=== PATIENT | male | born 1960 ===

== ENCOUNTER → 2021-05-23 08:18 | Outpatient (BNVA) | payer MEDICARE, MEDICAID, SELFPAY | PROVIDERS: Visit Provider Orthopaedic Surgery | DX: M17.12 Unilateral primary osteoarthritis, left knee (principal); E66.01 Morbid (severe) obesity due to excess calories; E11.9 Type 2 diabetes mellitus without complications; Z96.651 Presence of right artificial knee joint | CPT/HCPCS: 20610; 99202; J1100 ==

== ENCOUNTER 2021-07-22 09:00 | Outpatient (RCR) | payer MEDICARE, MEDICAID, SELFPAY ==
--- NOTE | 2021-06-22 11:50 | MHC.PT.EP ---
[facility] [place] Office [place] Office [place] Office [address] Danny Soto [address] [phone] F: [phone] F: [phone] F: [phone] F: [phone] Physical Therapy Plan of Care Date of Evaluation: Date of Surgery: Diagnosis: R knee OA Assessment: pt is a 61/yo male referred to pt for eval/treat of R knee pain (unilateral OA), and obesity. S/S are consistent w/ R unilateral knee dysfunction and increased abdominal girth resulting in decreased tolerance for WB activities like standing and ambulation for duration, negotiating stairs, picking object off of the floor, LE dressing, household activities secondary to decreased ROM of B knee, knee flexion/extension and hip abduction strength, Hx of unilateral OA of his knee. Pt is deemed an appropriate candidate to receive skilled PT in order to address his physical limitations to improve his functional ability. Frequency and Duration: The patient will be seen 2x/wk for 5wk Short Term Goals: initiate HEP I w/ compliance initiate low impact aerobic activities performing sit to stand w/ minimal difficulty or pain; initial reported significant difficulty demonstrate appropriate knee flexion during terminal stance/ swing phase Criminology Professor Goals: pt will able to walk 2 blocks w/ a little bit of difficulty; initial - quite a bit of difficulty (LEFI) pt will able to stand for an hour w/ a little to mod difficulty; initial - unable to stand/ extreme difficulty pt will able to negotiate 1 flight of stairs w/ little to no difficulty; initial quite a bit of difficulty Treatment Plan: Modalities to reduce pain, spasms and effusion. Manual therapy to restore motion and function. Therapeutic exercise to improve strength and flexibility. Neuromuscular re-education for posture and balance. Therapeutic activities to return to functional activities of daily living. Electronically signed by: Mainor Layne PT. Please sign and return to therapist. Thank you for your referral.
--- NOTE | 2021-08-12 16:01 | MHC.PT.DC ---
[facility] [place] Office [place] Office [place] Office [address] Danny Soto [address] [phone] F: [phone] F: [phone] F: [phone] F: [phone] Physical Therapy Discharge Report Diagnosis: R knee OA Date of Surgery: Date of Evaluation: 06/22/21 Date of Discharge: 08/12/21 Treatments to Date: 6 Cancellations to Date: No Shows to Date: Discharge Status: Patient Elected to Stop Discharge Summary: pt called and asked to dc. reports that he was seeing a procurement manager. Electronically signed by: Mainor Layne PT Please sign and return to therapist. Thank you for your referral.
== END 2021-08-12 15:41 | disposition home or self-care (01) ==
LOC: HO.PTCHIC 09:00
PROVIDERS: PCP Pediatrics; Visit Provider Orthopaedic Surgery
DX: M17.12 Unilateral primary osteoarthritis, left knee (principal); E66.01 Morbid (severe) obesity due to excess calories
CPT/HCPCS: 97110; 97150; 97162; 97530

== ENCOUNTER → 2021-08-22 08:53 | Outpatient (BNVA) | payer MEDICARE, MEDICAID, SELFPAY | PROVIDERS: Visit Provider Orthopaedic Surgery | DX: E66.01 Morbid (severe) obesity due to excess calories (principal); E11.9 Type 2 diabetes mellitus without complications | CPT/HCPCS: 20610; 99212; J1100 ==

== ENCOUNTER 2021-11-17 09:18 | Outpatient (REF) | payer MEDICARE, MEDICAID, SELFPAY ==
--- NOTE | ~2021-11-17 | XR_ITS ---
EXAMINATION: XR SHOULDER, LEFT CLINICAL INFORMATION: Pain left shoulder COMPARISON: None TECHNIQUE: 5 views of the left shoulder. FINDINGS: No acute visible fracture or dislocation. Slight inferior displacement of the humeral head in relation to the glenoid fossa suggesting rotator cuff pathology. Mild degenerative changes of the left glenohumeral and acromioclavicular joint with joint space narrowing reticular osteophyte formation. Joint spaces and alignment are otherwise maintained. Soft tissues are unremarkable. Visualized portions of the left chest are unremarkable. XR/XR shoulder LT min 2V IMPRESSION: 1. No acute visible fracture or dislocation. 2. Slight inferior displacement of the humeral head in relation to the glenoid fossa suggesting rotator cuff pathology. 3. Mild degenerative changes of the left glenohumeral and acromioclavicular joint.
== END 2021-11-17 09:19 | disposition home or self-care (01) ==
LOC: HO.HMGCX 09:18
PROVIDERS: PCP Pediatrics; Visit Provider Internal Medicine
DX: M25.512 Pain in left shoulder (principal)
CPT/HCPCS: 73030

== ENCOUNTER 2021-11-29 07:46 | Outpatient (REF) | payer MEDICARE, MEDICAID, SELFPAY | END 2021-11-29 07:47 | disposition home or self-care (01) | LOC: HO.MRI 07:46 | PROVIDERS: Visit Provider Internal Medicine | DX: Z13.89 Encounter for screening for other disorder (principal) ==

== ENCOUNTER 2021-12-15 10:00 | Outpatient (RCR) | payer MEDICARE, MEDICAID, SELFPAY ==
[2021-11-14 10:39] VITALS: BP 145/80; PULSE 85; O2SAT 96
== END 2021-12-15 11:42 | disposition home or self-care (01) ==
LOC: HO.PTCHIC 10:00
PROVIDERS: PCP Pediatrics; Visit Provider Internal Medicine
DX: M25.512 Pain in left shoulder (principal)
CPT/HCPCS: 97110; 97162

== ENCOUNTER → 2021-12-16 10:01 | Outpatient (BNVA) | payer MEDICARE, MEDICAID, SELFPAY | PROVIDERS: PCP Pediatrics; Visit Provider Orthopaedic Surgery | DX: M19.012 Primary osteoarthritis, left shoulder (principal); E66.01 Morbid (severe) obesity due to excess calories; Z68.43 Body mass index [BMI] 50.0-59.9, adult | CPT/HCPCS: 20610; 99212; J1100 ==

== ENCOUNTER → 2022-01-13 09:55 | Outpatient (BNVA) | payer MEDICARE, MEDICAID, SELFPAY | PROVIDERS: PCP Pediatrics; Visit Provider Orthopaedic Surgery | DX: M17.12 Unilateral primary osteoarthritis, left knee (principal); E11.9 Type 2 diabetes mellitus without complications; E66.01 Morbid (severe) obesity due to excess calories | CPT/HCPCS: 20610; 99212; J1100 ==

== ENCOUNTER → 2022-09-04 10:40 | Outpatient (BNVA) | payer MEDICARE, MEDICAID, SELFPAY | PROVIDERS: PCP Pediatrics; Visit Provider Orthopaedic Surgery | DX: M17.12 Unilateral primary osteoarthritis, left knee (principal); E11.9 Type 2 diabetes mellitus without complications; E66.01 Morbid (severe) obesity due to excess calories; Z68.43 Body mass index [BMI] 50.0-59.9, adult | CPT/HCPCS: 20610; 99212; J1100 ==

== ENCOUNTER 2023-02-26 08:24 | Outpatient (REF) | payer MEDICARE, MEDICAID, SELFPAY ==
--- NOTE | ~2023-02-26 | XR_ITS ---
Examination: Bilateral knee. CLINICAL INDICATION: Knee pain. COMPARISON: Bilateral knees 12/13/2018. TECHNIQUE: 2 views each knee. RIGHT KNEE: There is a hemiarthroplasty medial compartment right knee with severe loss of patellofemoral compartment joint space with moderate periarticular spurring. No abnormal joint effusion. No loose body seen. No visible fracture or dislocation. LEFT KNEE: There is severe loss of patellofemoral compartment joint space with mild periarticular spurring. No loose bodies or joint effusion seen. No acute fracture or joint effusion seen. XR/XR knee RT 2V IMPRESSION: Severe degenerative changes and patellofemoral compartment both knees slightly worse right knee without joint effusion or loose bodies. There is significant progression of patellofemoral compartment degenerative arthritic changes left knee from 2019..
--- NOTE | ~2023-02-26 | XR_ITS ---
EXAMINATION: XR KNEE AP STANDING CLINICAL INFORMATION: Bilateral knee pain. COMPARISON: Bilateral AP knee 12/13/2018 TECHNIQUE: AP bilateral standing view of the knees was obtained. FINDINGS: There is a partial medial right knee arthroplasty with the prosthetic components in satisfactory alignment. The lateral compartment joint space is maintained normal. Severe loss of medial compartment left knee joint space with periarticular spurring is noted. No fracture or loose body seen. XR/XR knee standing BI IMPRESSION: Partial right medial compartment hemiarthroplasty is stable. Severe degenerative changes medial compartment left knee are noted.
--- NOTE | ~2023-02-26 | XR_ITS ---
Examination: Bilateral knee. CLINICAL INDICATION: Knee pain. COMPARISON: Bilateral knees 12/13/2018. TECHNIQUE: 2 views each knee. RIGHT KNEE: There is a hemiarthroplasty medial compartment right knee with severe loss of patellofemoral compartment joint space with moderate periarticular spurring. No abnormal joint effusion. No loose body seen. No visible fracture or dislocation. LEFT KNEE: There is severe loss of patellofemoral compartment joint space with mild periarticular spurring. No loose bodies or joint effusion seen. No acute fracture or joint effusion seen. XR/XR knee LT 2V IMPRESSION: Severe degenerative changes and patellofemoral compartment both knees slightly worse right knee without joint effusion or loose bodies. There is significant progression of patellofemoral compartment degenerative arthritic changes left knee from 2019..
== END 2023-02-26 08:25 | disposition home or self-care (01) ==
LOC: HO.HOSX 08:24
PROVIDERS: Visit Provider Orthopaedic Surgery
DX: M17.12 Unilateral primary osteoarthritis, left knee (principal); M25.561 Pain in right knee; E66.01 Morbid (severe) obesity due to excess calories; E11.9 Type 2 diabetes mellitus without complications; Z68.43 Body mass index [BMI] 50.0-59.9, adult
CPT/HCPCS: 73560; 73565; 99212

== ENCOUNTER 2023-05-28 10:32 | Outpatient (AMB) | payer MEDICARE, MEDICAID, SELFPAY ==
--- NOTE | 2023-05-28 10:44 | MHC.OFFVIS ---
Intake Intake Visit Reasons: OV - Left Knee Durolane Injection Intake Note: Garrick is a 63 year old male who presents today for a Left Knee Durolane Injection Allergies penicillin V Allergy (Severe, Verified 01/13/22 10:06) Rash Penicillins [PENICILLINS] Allergy (Severe, Verified 01/13/22 10:06) RASH/SWELLING Pt states no food allergies Allergy (Severe, Uncoded 05/23/21 08:33) rash HPI OV - Left Knee Durolane Injection HPI Details Garrick is a 63 year old Diabetic man who returns for a left knee Durolane injection. He has a Hx of steroid injections, her last was on 09/04/22, which he says gave him relief for only a few days. He denies any changes in his symptoms or to his medical history [facility] Surgical History Status post right partial knee replacement Social History Current occupational status: retired Current occupation: rt handed Review of Systems Const All systems reviewed & are unremarkable except as noted in HPI and below Physical Exam Const General: no acute distress and alert Orientation/consciousness: patient oriented x3 Neuro General: patient oriented x3 Extrem Other: Left Knee: Skin C/D/I No effusion Psych Appearance: grossly normal Affect: normal affect Attitude: cooperative Office Procedures Joint Injection/Drain Joint Injection/Drain Details: Durolane. Site was prepped using aseptic technique. Patient tolerated the procedure well. Primary Site: left knee Approach Used: anterolateral Coding 72114 - Large joint Procedure code (CPT) selection complete Results Reviewed Results Reviewed: 05/28/23 10:38 Hyaluronate Sodium, Stabilized [Durolane] 60 mg INTRAARTIC .STK-MED ONE Assessment & Plan Assessment & Plan (1) Osteoarthritis of left knee: Code(s): M17.12 - Unilateral primary osteoarthritis, left knee Plan: This is a 62 year old man with left knee OA. He has pain with daily activity, and had very limited relief from his last steroid injection on 09/04/22. I injected his left knee with Durolane today, which he tolerated well. I recommend he remain active and work on weight management. He can follow up prn. (2) Diabetes: Code(s): E11.9 - Type 2 diabetes mellitus without complications (3) Morbid obesity: Code(s): E66.01 - Morbid (severe) obesity due to excess calories Plan: I referred him to Bariatrics Plan Scribed for Derek Stephens MD by Kane Prescott, medical records analyst, on 05/28/23 at 10:50 AM, EST. Coding Level of Care Code Est Pt Level 2 (49903) Diagnoses Osteoarthritis of left knee M17.12 Diabetes E11.9 Morbid obesity E66.01 CPT Codes Coding - 72400 Large joint: 98934 - Large joint ([id number])
== END 2023-05-28 11:31 | disposition home or self-care (01) ==
PROVIDERS: PCP Pediatrics; Visit Provider Orthopaedic Surgery
DX: M17.12 Unilateral primary osteoarthritis, left knee (principal); E11.9 Type 2 diabetes mellitus without complications; E66.01 Morbid (severe) obesity due to excess calories
CPT/HCPCS: 20610; 99213

== ENCOUNTER → 2023-05-28 10:32 | Outpatient (BNVA) | payer MEDICARE, MEDICAID, SELFPAY | PROVIDERS: PCP Pediatrics; Visit Provider Orthopaedic Surgery | DX: M17.12 Unilateral primary osteoarthritis, left knee (principal); E66.01 Morbid (severe) obesity due to excess calories; E11.9 Type 2 diabetes mellitus without complications | CPT/HCPCS: 20610; J7318 ==

== ENCOUNTER 2023-07-10 08:02 | Outpatient (REF) | payer MEDICARE, MEDICAID, SELFPAY ==
[2023-07-10 14:21] LABS: MANUAL DIFF FLAG NO
[2023-07-10 14:23] LABS: Basophils Percent Auto 0.4 % (0-2); Eosinophils Absolute Auto 0.1 X10*3/uL (0.0-0.4); Eosinophils Percent Auto 0.9 % (0-4); Hematocrit 47.5 % (42.0-52.0); Hemoglobin 15.3 g/dl (14.0-18.0); Imm Gran Abs Auto 0.01 X10*3/uL (0.00-0.03); Imm Gran Pct Auto 0.1 % (0.0-0.4); Lymphocytes Absolute Auto 1.8 X10*3/uL (1.2-4.9); Mean Corpuscular HGB Conc 32.2 g/dl (31.0-36.0); Mean Corpuscular Hemoglobin 29.8 pg (27.0-33.0); Mean Corpuscular Volume 92.4 fL (80.0-98.0); Mean Platelet Volume 10.1 fL (9.4-12.4); Monocytes Absolute Auto 0.4 X10*3/uL (0.1-1.2); Monocytes Percent Auto 6.5 % (2-11); Neutrophils Absolute Auto 4.5 x10*3/uL (2.0-8.3); Neutrophils Percent Auto 66.1 % (45-73); Platelet Count 264 X10*3/uL (160-400); Red Blood Count 5.14 X10*6/uL (4.60-5.80); Red Cell Distribution Width 13.2 % (11.0-16.0); White Blood Count 6.8 X10*3/uL (4.8-10.8)
[2023-07-10 16:05] LABS: Cholesterol 170 mg/dL (<200); Estimated Glomerular Filt Rate > 60; HDL Cholesterol 38 mg/dL (>40); LDL Cholesterol Calculated 85 mg/dL (<100); Triglycerides 239 mg/dL (<150)
== END 2023-07-10 08:03 | disposition home or self-care (01) ==
LOC: HO.CHCLDS 08:02
PROVIDERS: Visit Provider Pediatrics
DX: E11.65 Type 2 diabetes mellitus with hyperglycemia (principal)
CPT/HCPCS: 36415; 80061; 82565; 85025

== ENCOUNTER → 2023-09-03 20:30 | Outpatient (REF) | payer MEDICARE, MEDICAID, SELFPAY | LOC: HO.SL 20:30 | PROVIDERS: PCP Pediatrics; Visit Provider Pediatrics | DX: G47.33 Obstructive sleep apnea (adult) (pediatric) (principal) | CPT/HCPCS: 95810 ==

== ENCOUNTER → 2023-09-03 20:30 | Outpatient (BNV) | payer MEDICARE, MEDICAID, SELFPAY | PROVIDERS: PCP Pediatrics; Visit Provider Internal Medicine | DX: G47.33 Obstructive sleep apnea (adult) (pediatric) (principal) | CPT/HCPCS: 95810 ==

== ENCOUNTER → 2024-01-22 08:26 | Outpatient (BNVA) | payer MEDICARE, MEDICAID, SELFPAY | PROVIDERS: PCP Pediatrics; Visit Provider Nurse Practitioner Family ==

== ENCOUNTER 2024-08-22 11:14 | Outpatient (AMB) | payer MEDICARE, MEDICAID, SELFPAY ==
--- NOTE | 2024-08-22 11:22 | A.OFFVIS_ITS ---
Vital Signs 08/22/24 11:26 Height 5 ft 6 in Weight 288 lb BMI 46.5 Intake Visit Reasons: OV - Left Knee OA - Durolane inj May Intake Note: Garrick is a 64 year old male who presents today for a follow up of his Left Knee OA. Last seen on 05/28/24 where he received a Left Knee Durolane Injection. Patient reports no relief with cortisone or gel injections. He has ongoing pain at the anterior aspect of knee that increases with walking and standing up. Denies numbness or tingling. Allergies penicillin V Allergy (Severe, Verified 08/22/24 11:24) Rash Penicillins [PENICILLINS] Allergy (Severe, Verified 08/22/24 11:24) RASH/SWELLING Pt states no food allergies Allergy (Severe, Uncoded 08/22/24 11:) rash HPI HPI OV - Left Knee OA - Durolane inj Suzy: Details: Garrick is a 64 year old male who presents today for a follow up of his Left Knee OA. Last seen on 05/28/24 where he received a Left Knee Durolane Injection. Patient reports no relief with cortisone or gel injections. He has ongoing pain at the anterior aspect of knee that increases with walking and standing up. Denies numbness or tingling. He had a partial knee replacement on the right which was very successful and has similar findings on his left knee. COUNT INCLUDES THE [facility] Medical History (Updated 05/13/24 @ 11:49 by Samantha Arcos RN) Schizophrenia Anxiety Sleep apnea Elevated cholesterol HTN (hypertension) Diabetes Hx of repaired congenital anomaly of gastrointestinal tract Surgical History Status post right partial knee replacement Social History Current occupational status: retired Current occupation: rt handed Physical Exam Vital Signs: BMI result Body Mass Index 46.5 Extrem Other: Medial joint line tenderness to palpation. Antalgic gait. Results Reviewed Results Reviewed: I personally reviewed relevant radiographs. Right unicompartmental knee arthroplasty in appropriate position Severe left knee compartment osteoarthritis predominantly medial. Assessment & Plan Assessment & Plan (1) Osteoarthritis of left knee: Code(s): M17.12 - Unilateral primary osteoarthritis, left knee Category: Medical Plan: Severe osteoarthritis left knee. He would be a surgical candidate if he could lose weight. I recommend a weight loss of 50 lb for a BMI of 40. I discussed this with him. Follow up 3 months (2) Morbid obesity: Code(s): E66.01 - Morbid (severe) obesity due to excess calories Category: Medical Plan: I will send him to weight management (3) Diabetes: Code(s): E11.9 - Type 2 diabetes mellitus without complications Category: Medical Plan: No more injections given diabetes and desire to lose weight. Coding Level of Care Code Est Pt Level 3 (05172) Complex EM visit Add On G2211 Diagnoses Osteoarthritis of left knee M17.12 Morbid obesity E66.01 Diabetes E11.9
[2024-08-22 11:26] VITALS: BMI 46.5
== END 2024-08-22 11:44 | disposition home or self-care (01) ==
PROVIDERS: PCP Pediatrics; Visit Provider Orthopaedic Surgery
DX: M17.12 Unilateral primary osteoarthritis, left knee (principal); E66.01 Morbid (severe) obesity due to excess calories; E11.9 Type 2 diabetes mellitus without complications
CPT/HCPCS: 99213; G2211

== ENCOUNTER → 2024-08-22 11:14 | Outpatient (BNVA) | payer MEDICARE, MEDICAID, SELFPAY | PROVIDERS: PCP Pediatrics; Visit Provider Orthopaedic Surgery | DX: M17.12 Unilateral primary osteoarthritis, left knee (principal); E11.9 Type 2 diabetes mellitus without complications; E66.01 Morbid (severe) obesity due to excess calories; Z68.42 Body mass index [BMI] 45.0-49.9, adult | CPT/HCPCS: 99212 ==

== ENCOUNTER 2024-10-23 08:32 | Outpatient (REF) | payer MEDICARE, MEDICAID, SELFPAY ==
[2024-10-23 14:55] LABS: Alanine Aminotransferase 30 U/L (0-40); Albumin Level 4.3 g/dL (3.5-5.0); Alkaline Phosphatase 86 U/L (39-117); Aspartate Amino Transferase 29 U/L (5-37); Bilirubin Direct 0.1 mg/dL (0.0-0.5); Bilirubin Total 0.3 mg/dL (0.0-1.0); Total Protein 7.7 g/dL (6.5-8.0)
== END 2024-10-23 08:33 | disposition home or self-care (01) ==
LOC: HO.CHCLDS 08:32
PROVIDERS: Visit Provider Family Medicine
DX: F11.20 Opioid dependence, uncomplicated (principal)
CPT/HCPCS: 36415; 80076

== ENCOUNTER 2025-02-09 07:15 | Outpatient (REF) | payer MEDICARE, MEDICAID, SELFPAY ==
--- NOTE | ~2025-02-09 | XR_ITS ---
CLINICAL HISTORY: R foot pain Three views of the right foot. COMPARISON: None FINDINGS: No ankle joint effusion. Prominent calcaneal enthesophyte present. Small osteophytes present along the dorsal aspect of the tarsal bones. Normal tarsometatarsal alignment. Tarsals, metatarsals and phalanges appear intact. No radiopaque foreign body. Erosions identified. IMPRESSION: 1. No radiographic evidence of acute injury to the right foot. 2. Prominent calcaneal enthesophyte present. This document has been electronically signed by: Philippe Faulkner MD on 02/09/2025 15:46:02
--- OUTSIDE RECORDS SUMMARY | 2025-02-09 07:18 | XMS_ITS | Encounter Summary ---
Author Organization [employer] Address [address] [facility] [address] [place] [address] Care Team Providers Care Burnisher Name Role Phone Dominique Chavis MD Primary Care Provider [phone] Reason for Visit * Reason Comments Med Refill Encounter Details Date Type Department Care Team (Late Contact Info) Description 05/18/2023 Refill [facility] MED & PEDS [address] [place] [address] Dominique Chavis MD [address] [place] [address] Chronic idiopathic constipation Social History Tobacco Use Types Packs/Day Years Used Date Smoking Tobacco: Never Assessed Sex and Gender Information Value Date Recorded Sex Assigned at Male 09/04/2022 10:16 AM EDT Legal Sex Male 10:16 AM EDT Gender Identity Male 09/04/2022 10:16 AM EDT Sexual Orientation Straight 09/04/2022 10 :16 AM EDT documented as of this encounter Plan of Treatment Upcoming Encounters Date Type Department Care Team (Late Contact Info) Description 02/09/2025 9:00 AM EDT Office Visit [facility] [address] [place] [address] Brad Hall MD [address] [place], [place] [phone] 04/06/2025 9:00 AM EDT Office Visit [facility] [address] [place] [address] Brad Hall MD [address] [place], [place] [phone] 05/07/2025 9:00 AM EDT Office Visit [facility] [address] [place] [address] Dominique Chavis MD [address] [place] [address] documented as of this encounter Visit Diagnoses Diagnosis Chronic idiopathic constipation Unspecified constipation documented in this encounter Care Teams Burnisher Relationship Specialty Start Date End Date Dominique Chavis MD [address] [place] [address] PCP - General Family Medicine 11/05/18 [facility] 01/31/19 documented as of this encounter
--- OUTSIDE RECORDS SUMMARY | 2025-02-09 07:18 | XMS_ITS | Encounter Summary ---
Author Organization [employer] Address [address] [facility] [address] [place] [address] Care Team Providers Care Uke Driver Name Role Phone Dominique Chavis MD Primary Care Provider [phone] Reason for Referral * Consultation (Routine) - Pending Review Specialty Diagnoses / Procedures Referred By Lance zheng Referred To Contact Podiatry Diagnoses Foot pain, right Type 2 diabetes mellitus without complication, without long-term current use of insulin (CMS/HCC) Dominique Chavis MD [address] [place] [address] Phone: tel: fax: Referral ID Status Reason Start Date Expiration Date Visits Requested Visits Authorized [id number] Pending Review Specialty Services Required 02/08/2025 02/08/2026 1 1 Encounter Details Date Type Department Care Team ([facility] st Contact Info) Description 02/08/2025 Orders Only [facility] MED [facility] PEDS [address] [place] [address] Dominique Chavis MD [address] [place] [address] Foot pain, right (Primary Dx); Type 2 diabetes mellitus without complication, without long-term current use of insulin (CMS/HCC) Social History Tobacco Use Types Packs/Day Years Used Date Smoking Tobacco: Never Passive Smoke Exposure: Never Smokeless Tobacco: Never Depression Answer Date Recorded Patient Health Questionnaire-9 Score 14 02/05/2025 Patient Health Questionnaire-9 Score 14 02/05/2025 Last PHQ-9: Questionnaire Data Not on file 0 02/05/2025 Housing Stability Answer Date Recorded What is your housing situation today? I have [place] 02/13/[address] you li ve. Do you have problems with any of the following? None of the above 02/13/2024 Food Insecurity Answer Date Recorded Within the past 12 months, y ou worried that your food would run out before you got money to buy more: Never True 02/13/2024 Within the past 12 months,th e food you bought just didn't last and you didn't have enough money to get more: Never True 08/2024 Transportation Answer Date Recorded In the past 12 months, has l ack of transportation kept you from medical appts, meetings, work or from getting things needed for daily living? No 02/13/2024 Utilities Answer Date Recorded In the past 12 months, has t he electric, gas, oil or water company threatened to shut off services in your home? No 02/13/2024 Depression Answer Date Recorded Patient Health Questionnaire-2 Score 4 02/05/2025 Internet Access Answer Date Recorded Internet Access Q1 Yes 02/05/2025 Internet Access Q2 Not on file 02/05/2025 Sex and Gender Information Value Date Recorded Sex Assigned at Male 09/04/2022 10:16 AM EDT Legal Sex Male 10:16 AM EDT Gender Identity Male 09/04/2022 10:16 AM EDT Sexual Orientation Straight 09/04/2022 10 :16 AM EDT documented as of this encounter Plan of Treatment Upcoming Encounters Date Type Department Care Team (Late st Contact Info) Description 02/09/2025 9:00 AM EDT Office Visit [facility] MED & PEDS [address] [place] [address] Brad Hall MD [address] [place] [phone] 04/06/2025 9:00 AM EDT Office Visit [facility] MED & PEDS [address] [place] [address] Brad Hall MD [address] [place] [address] 05/07/2025 9:00 AM EDT Office Visit [facility] MED & PEDS [address] [place] [address] Dominique Chavis MD [address] [place] [address] Scheduled Referrals Name Type Priority Associated Diagnoses Orde r Schedule Referral to Podiatry Outpatient Referral Routine Foot pain, right Type 2 diabetes mellitus without complication, without long-term current use of insulin (CMS/[facility]) Expected: 02/08/2025 (Approximate), Expires: 02/08/2026 documented as of this encounter Visit Diagnoses Diagnosis Foot pain, right- Primary Pain in soft tissues of limb Type 2 diabetes mellitus without complication, without long-term current use of insulin (CMS/HCC) documented in this encounter Additional Health Concerns Assessment Noted Time PHQ-9 Depression Total Score: 14 025 8:42 AM EDT documented as of this encounter Care Teams Uke Driver Relationship Specialty Start Date End Date Dominique Chavis MD [address] [place] [address] PCP - General Family Medicine 11/05/18 [facility] 01/31/19 documented as of this encounter
--- OUTSIDE RECORDS SUMMARY | 2025-02-09 07:18 | XMS_ITS | Encounter Summary ---
Author Organization [employer] Address [address] [facility] [address] [place] [address] Care Team Providers Care Windows Deployment Technician Name Role Phone Dominique Chavis MD Primary Care Provider [phone] Reason for Visit * Reason Onset Date Comments Durable Medical Equipment 08/08/2023 Encounter Details Date Type Department Care Team (Late st Contact Info) Description 08/08/[address] [facility]S [address] [place] [address] Dominique Chavis MD [address] [place] [address] Durable Medical Equipment Social History Tobacco Use Types Packs/Day Years Used Date Smoking Tobacco: Never Passive Smoke Exposure: Never Smokeless Tobacco: Never Sex and Gender Information Value Date Recorded Sex Assigned at Male 09/04/2022 10:16 AM EDT Legal Sex Male 10:16 AM EDT Gender Identity Male 09/04/2022 10:16 AM EDT Sexual Orientation Straight 09/04/2022 10 :16 AM EDT documented as of this encounter Miscellaneous Notes * Telephone Encounter - Elaine Mitchell - 08/08/2023 3:46 PM EDT Tc from [facility] requesting a new script for a CPAP machine. documented in this encounter Plan of Treatment Upcoming Encounters Date Type Department Care Team (Late st Contact Info) Description 02/09/2025 9:00 AM EDT Office [address] [facility] [address] [place] [address] Brad Hall MD [address] [place] [address] 04/06/2025 9:00 AM EDT Office Visit [facility] P[facility] [address] [place] [address] Brad Hall MD [address] [place] [address] 05/07/2025 9:00 AM EDT Office Visit [facility] [address] [place] [address] Dominique Chavis MD [address] [place] [address] documented as of this encounter Visit Diagnoses Not on filedocumented in this encounter Care Teams Windows Deployment Technician Relationship Specialty Start Date End Date Dominique Chavis MD [address] [place] [address] PCP - General Family Medicine 11/05/18 [facility] 01/31/19 documented as of this encounter
--- OUTSIDE RECORDS SUMMARY | 2025-02-09 07:18 | XMS_ITS | Encounter Summary ---
Author Organization [employer] Address 75 [facility] 7 [place] [address] Care Team Providers Care Transitional Kindergarten Teacher Name Role Phone Dominique Chavis MD Primary Care Provider [phone] Reason for Referral * Consultation (Routine) - Authorized Specialty Diagnoses / Procedures Referred By Contatiya t Referred To Contact Orthopaedic Surgery Diagnoses Foot pain, right Idiopathic osteoarthritis Dominique Chavis MD [address] [place] [address] Phone: tel: fax: [facility] [address] [place] [address] Phone: tel: Referral ID Status Reason Start Date Expiration Date Visits Requested Visits Authorized [id number] Authorized Specialty Services Required 02/05/2025 02/05/2026 1 1 Encounter Details Date Type Department Care Team ([facility] st Contact Info) Description 02/05/2025 9:00 AM EDT Office Visit [facility]C MED & PEDS [address] [place] [address] Dominique Chavis MD [address] [place] [address] Foot pain, right (Primary Dx); Idiopathic osteoarthritis; Dietary counseling; Exercise counseling; Type 2 diabetes mellitus without complication, without long-term current use of insulin ([facility]/HCC); Depressive disorder Social History Tobacco Use Types Packs/Day Years [...] AM EDT documented as of this encounter Last Filed Vital Signs Vital Sign Reading Time Taken Comments Blood Pressure 144/84 02/05/2025 8:39 AM EDT Pulse 82 02/05/2025 8:39 AM EDT Temperature 36.8 ??C (98.2 ??F) 02/05/2025 8:39 AM ED T Respiratory Rate 20 02/05/2025 8:39 AM EDT Oxygen Saturation 97% 02/05/2025 8:39 AM EDT Inhaled Oxygen Concentration - - Weight 132 kg (290 lb 12.8 oz) 02/05/2025 8:39 A M EDT Height 167.6 cm (5' 6 ) 02/05/2025 8:39 AM EDT Body Mass Index 46.94 02/05/2025 8:39 AM EDT documented in this encounter Progress Notes * Dominique Chavis MD - 02/05/2025 9:00 AM EDT Subjective Patient ID: Garrick Cornejo is a 65 y.o. male who presents for follow up. Garrick is a 65-year-old male patient of [facility] with diabetes type 2 here for follow-up. Complaining of right midfoot pain plantar area for the past 1 month or so. Denies any injury. Patient states has not seen orthopedic surgeon Dr. Stephens in over a year and he used to see him for his knee osteoarthritis and he would like to see him for this matter if possible. He uses orthopedic diabetic shoes. He has lost 5 pounds since last visit. He still sees Dr. Hall every 2 months for Suboxone therapy and states they are going down in dosage and tolerating well. He states his CLINIC COORDINATOR hours at nighttime were discontinued for the past month and is unsure why but states it has affected his mood and anxiety. Review of Systems Constitutional: Negative for activity change, chills, fever and unexpected weight change. Respiratory: Negative for cough, shortness of breath and wheezing. Cardiovascular: Negative for chest pain, palpitations and leg swelling. Gastrointestinal: Negative for abdominal pain and blood in stool. Endocrine: Negative for polydipsia and polyuria. Genitourinary: Negative for decreased urine volume, difficulty urinating, dysuria and hematuria. Musculoskeletal: Negative for arthralgias and gait problem. Skin: Negative for color change and rash. Neurological: Negative for dizziness and headaches. Hematological: Negative for adenopathy. Psychiatric/Behavioral: Negative for dysphoric mood, hallucinations, sleep disturbance and suicidalideas. The patient is not nervous/anxious. Objective BP (!) 144/84 (BP Location: Right arm, Patient Position: Sitting, BP Cuff Size: Large adult) Pulse 82 Temp 98.2 ??F (36.8 ??C) (Oral) Resp 20 Ht 5' 6 (1.676 m) Wt 290 lb 12.8 oz (132 kg) SpO2 97% BMI 46.94 kg/m?? Physical Exam Vitals reviewed. Constitutional: General: He is not in acute distress. Appearance: He is normal weight. HENT: Head: Normocephalic. Nose: Nose normal. Mouth/Throat: Mouth: Mucous membranes are moist. Comments: Has braces Eyes: Extraocular Movements: Extraocular movements intact. Pupils: Pupils are equal, round, and reactive to light. Cardiovascular: Rate and Rhythm: Normal rate and regular rhythm. Pulses: Dorsalis pedis pulses are 2+ on the right side and 2+ on the left side. Posterior tibial pulses are 2+ on the right side and 2+ on the left side. Heart sounds: Normal heart sounds. No murmur heard. Pulmonary: Effort: Pulmonary effort is normal. Breath sounds: Normal breath sounds. Abdominal: General: Bowel sounds are normal. There is distension. Palpations: Abdomen is soft. There is no mass. Tenderness: There is no abdominal tenderness. There is no guarding. Musculoskeletal: General: Normal range of motion. Right lower leg: No edema. Left lower leg: No edema. Right foot: Normal range of motion. Tenderness present. No deformity, bunion, Charcot foot or prominent metatarsal heads. Left foot: Normal range of motion. No deformity, bunion, Charcot foot or prominent metatarsal heads. Feet: Right foot: Protective Sensation: 7 sites tested. 7 sites sensed. Skin integrity: Skin integrity normal. No ulcer, blister, skin breakdown, erythema, warmth, callus or dry skin. Toenail Condition: Right toenails are normal. Left foot: Protective Sensation: 7 sites tested. 7 sites sensed. Skin integrity: Skin integrity normal. No ulcer, blister, skin breakdown, erythema, warmth, callus or dry skin. Toenail Condition: Left toenails are normal. Skin: Capillary Refill: Capillary refill takes less than 2 seconds. Findings: No rash. Neurological: Mental Status: He is oriented to person, place, and time. Psychiatric: Mood and Affect: Mood normal. Behavior: Behavior normal. Assessment/Plan Diagnoses and all orders for this visit: Foot pain, right Comments: Seems like plantar fasciitis to me on exam. Continue to use supportive shoes. Referral to Ortho at [facility] done for eval of foot pain and OA of knees. Orders: - XR Foot 3+ Views Right; Future - Referral to Orthopaedic Surgery; Future Idiopathic osteoarthritis - Referral to Orthopaedic Surgery; Future Dietary counseling Exercise counseling Type 2 diabetes mellitus without complication, without long-term current use of insulin ([facility]) Comments: His DM is usually well-controlled. He needs to get his fasting labs drawn and plans to do so next week. Will adjust dose of medications if needed after review Depressive disorder Comments: Garrick sees his therapist and psychiatrist on a regular basis medication changes. Follow-up with them as planned. documented in this encounter Plan of Treatment Upcoming Encounters Date Type Department Care Team (Late st Contact Info) Description 02/09/2025 9:00 AM EDT Office Visit [facility] MED & PEDS [address] [place] [address] Brad Hall MD [address] [place] [address] 04/06/2025 9:00 AM EDT Office Visit [facility] MED & PEDS [address] [place] [address] Brad Hall MD [address] [place] [address] 05/07/2025 9:00 AM EDT Office Visit [facility] MED & PEDS [address] [place] [address] Dominique Chavis MD [address] [place] [address] Scheduled Orders Name Type Priority Associated Diagnoses Orde r Schedule XR Foot 3+ Views Right Imaging Routine Foot pain, right Expected: 02/05/2025, Expires: 02/05/2026 Scheduled Referrals Name Type Priority Associated Diagnoses Orde r Schedule Referral to Orthopaedic Surgery Outpatient Referral Routine Foot pain, right Idiopathic osteoarthritis Expected: 02/05/2025 (Approximate), Expires: 02/05/2026 documented as of this encounter Visit Diagnoses Diagnosis Foot pain, right- Primary Pain in soft tissues of limb Idiopathic osteoarthritis Osteoarthrosis, unspecified whether generalized or localized, unspecified site Dietary counseling Dietary surveillance and counseling Exercise counseling Type 2 diabetes mellitus without complication, without long-term current use of insulin ([facility]) Depressive disorder Depressive disorder, not elsewhere classified documented in this encounter Additional Health Concerns Assessment Noted Time PHQ-9 Depression Total Score: 14 025 8:42 AM EDT documented as of this encounter Care Teams Transitional Kindergarten Teacher Relationship Specialty Start Date End Date Dominique Chavis MD [address] [facility] [place] [address] PCP - General Family Medicine 11/05/18 [facility] 01/31/19 documented as of this encounter
--- OUTSIDE RECORDS SUMMARY | 2025-02-09 07:18 | XMS_ITS | Encounter Summary ---
Author Organization [employer] Address 75 [facility] 7t [place] [address] Care Team Providers Care Plastics Engineering Teacher Name Role Phone Dominique Chavis MD Primary Care Provider [phone] Reason for Visit * Reason Onset Date Comments FYI 11/02/2023 Encounter Details Date Type Department Care Team ([facility] st Contact Info) Description 11/02/2023 Telephone C [facility]S [address] [place] [address] Dominique Chavis MD [address] [place] [address] FYI Social History Tobacco Use Types Packs/Day Years [...] encounter Miscellaneous Notes * Telephone Encounter - Luis Troncoso RN - 11/02/2023 4:02 PM EST Please see FYI below. Thanks. * Telephone Encounter - Jose Oneil - 11/02/2023 3:55 PM EST Tc from [facility] letting provider know they are renewing home care orders for pt for 60 days. [facility] they are faxing orders over for provider to sign. If any questions contact [facility] at [phone]. documented in this encounter Plan of Treatment Upcoming Encounters Date Type Department Care Team (Late st Contact Info) Description 02/09/2025 9:00 AM EDT Office Visit [facility] MED & PEDS [address] [place] [address] Brad Hall MD [address] [place] [address] 04/06/2025 9:00 AM EDT Office Visit [facility] MED & PEDS [address] [place] [address] Brad Hall MD [address] [place] [address] 05/07/2025 9:00 AM EDT Office Visit [facility] MED & PEDS [address] [place] [address] Dominique Chavis MD [address] [place] [address] documented as of this encounter Visit Diagnoses Not on filedocumented in this encounter Care Teams Plastics Engineering Teacher Relationship Specialty Start Date End Date Dominique Chavis MD [address] [place] [address] PCP - General Family Medicine 11/05/18 [facility] 01/31[facility]19 documented as of this encounter
--- OUTSIDE RECORDS SUMMARY | 2025-02-09 07:18 | XMS_ITS | Encounter Summary ---
Author Organization [employer] Address 75 [facility] 7t [place] [address] Care Team Providers Care Leather Grainer Name Role Phone Dominique Chavis MD Primary Care Provider [phone] Reason for Visit * Reason Onset Date Comments Prior Authorization 01/06/2025 Change Encounter Details Date Type Department Care Team ([facility] st Contact Info) Description 01/06/2025 Telephone C [facility]S [address] [place] [address] Dominique Chavis MD [address] [place] [address] Prior Authorization (Change ) Social History Tobacco Use Types Packs/Day Years Used Date Smoking Tobacco: Never Passive Smoke Exposure: Never Smokeless Tobacco: Never Depression Answer Date Recorded Patient Health Questionnaire-9 Score 6 02/21/2024 Patient Health Questionnaire-9 Score 6 02/21/2024 Last PHQ-9: Questionnaire Data Not on file 0 02/21/2024 Housing Stability Answer Date Recorded What is [...] Answer Date Recorded Patient Health Questionnaire-2 Score 3 02/21/2024 Sex and Gender Information Value Date Recorded Sex Assigned at Male 09/04/2022 10:16 AM EDT Legal Sex Male 10:16 AM EDT Gender Identity Male 09/04/2022 10:16 AM EDT Sexual Orientation Straight 09/04/2022 10 :16 AM EDT documented as of this encounter Miscellaneous Notes * Telephone Encounter - Cherry Benson RN - 01/06/2025 4:18 PM EST Images from the original note were not included. TC placed to pt to inform of below PCP message. Pt verbalized understanding of PCP message and denies questions at this time. MD Faye Garcia LPN; [facility] Med & Peds Nurses: Pulmicort stopped due tonot covered by insurance, arnuity inhaler sent instead, please inform patient. thanks * Telephone Encounter - Faye Washington LPN - 01/06/2025 11:56 AM EST Pulmicort requires a Pa, If changed to Arnuity Pa no required . If changed please D/C Pulmicort documented in this encounter Plan of Treatment Upcoming Encounters Date Type Department Care Team (Late st Contact Info) Description 02/09/2025 9:00 AM EDT Office Visit [facility] MED & PEDS [address] [place] [address] Brad Hall MD [address] [place] [address] 04/06/2025 9:00 AM EDT Office Visit [facility] MED & PEDS [address] [place] [address] Brad Hall MD [address] [place] [address], [place] [address] 05/07/2025 9:00 AM EDT Office Visit [facility] CHC MED & PEDS [address] [place], [place] [phone] Dominique Chavis MD [address] [place] [address] documented as of this encounter Visit Diagnoses Not on filedocumented in this encounter Additional Health Concerns Assessment Noted Time PHQ-9 Depression Total Score: 6 02/21/20 24 2:08 PM EDT documented as of this encounter Care Teams Leather Grainer Relationship Specialty Start Date End Date Dominique Chavis MD [address] [place] [address] PCP - General Family Medicine 11/05/18 [facility] 01/31/19 documented as of this encounter
--- OUTSIDE RECORDS SUMMARY | 2025-02-09 07:18 | XMS_ITS | Encounter Summary ---
Author Organization [employer] Address 75 [facility] 7t [place] [address] Care Team Providers Care Osteology Teacher Name Role Phone Dominique Chavis MD Primary Care Provider [phone] Reason for Visit * Reason Onset Date Comments pre medication 03/10/2024 Encounter Details Date Type Department Care Team ([facility] st Contact Info) Description 03/10/2024 Telephone C [facility]AL [address] [place] [address] Renetta Rincon, NATHALY pre medication Social History Tobacco Use Types Packs/Day Years [...] encounter Miscellaneous Notes * Telephone Encounter - Sendy Mueller - 03/11/2024 8:33 AM EDT Patient calling in to verify if he needs to hve pre med sent to the pharmacy. He states that last time he had extractions done he had pre med Baljit GARSIA dr can you send the antibiotic too the pharmacy for this patient he has extractions elisa with you . * Telephone Encounter - Missy Urena - 03/10/2024 8:05 AM EDT Patient calling in to verify if he needs to hve pre med sent to the pharmacy. He states that last time he had extractions done he had pre med documented in this encounter Plan of Treatment Upcoming Encounters Date Type Department Care Team (Late st Contact Info) Description 02/09/2025 9:00 AM EDT Office Visit [facility] MED & PEDS [address] [place] [address] Brad Hall MD [address] [place] [address] 04/06/2025 9:00 AM EDT Office Visit [facility] MED & PEDS [address] [place] [address] Brad Hall MD [address] [place] [address] 05/07/2025 9:00 AM EDT Office Visit [facility] MED & PEDS [address] [place] [address] Dominique Chavis MD [address] [place] [address] documented as of this encounter Visit Diagnoses Not on filedocumented in this encounter Additional Health Concerns Assessment Noted Time PHQ-9 Depression Total Score: 6 02/21/20 24 2:08 PM EDT documented as of this encounter Care Teams Osteology Teacher Relationship Specialty Start Date End Date Dominique Chavis MD [address] [place] [address] PCP - General Family Medicine 11/05/18 [facility] 01/31/19 documented as of this encounter
--- OUTSIDE RECORDS SUMMARY | 2025-02-09 07:18 | XMS_ITS | Encounter Summary ---
Author Organization [employer] Address 75 [facility] 7t [place] [address] Care Team Providers Care Technical Support Agent Name Role Phone Dominique Chavis MD Primary Care Provider [phone] Reason for Visit * Reason Comments Med Refill Encounter Details Date Type Department Care Team (Late Contact Info) Description 05/17/2023 Refill [facility] MED & PEDS [address] [place] [address] Dominique Chavis MD [address] [place] [address] Chronic idiopathic constipation Social History Tobacco Use [...] Description 02/09/2025 9:00 AM EDT Office Visit [facility] CHC MED & PEDS [address] [place] [address] Brad Hall MD [address] [place], [place] [phone] 04/06/2025 9:00 AM EDT Office Visit [facility] MED & PEDS [address] [place] [address] Brad Hall MD [address] [place], [place] [phone] 05/07/2025 9:00 AM EDT Office Visit [facility] MED & PEDS [address] [place] [address] Dominique Chavis MD [address] [place] [address] documented as of this encounter Visit Diagnoses Diagnosis Chronic idiopathic constipation Unspecified constipation documented in this encounter Care Teams Technical Support Agent Relationship Specialty Start Date End Date Dominique Chavis MD [address] [place] [address] PCP - General Family Medicine 11/05/18 [facility] 01/31/19 documented as of this encounter
--- OUTSIDE RECORDS SUMMARY | 2025-02-09 07:18 | XMS_ITS | Encounter Summary ---
Author Organization [employer] Address 75 [facility] 7t [place] [address] Care Team Providers Care Automation Qa Lead Name Role Phone Dominique Chavis MD Primary Care Provider Reason for Visit * Reason Comments Med Refill Encounter Details Date Type Department Care Team (Late Contact Info) Description 08/27/2023 Refill [facility] MEDICINE [address] [place] [address] Brad Hall MD [address] [place] [address] Opioid dependence, uncomplicated (CMS/[facility]) Social History Tobacco Use Types Packs/Day Years [...] Description 02/09/2025 9:00 AM EDT Office Visit [facility] CHC MED & PEDS [address] [place] [address] Brad Hall MD [address] [place] [phone] 04/06/2025 9:00 AM EDT Office Visit [facility] MED & PEDS [address] [place] [address] Brad Hall MD [address] [place] [address] 05/07/2025 9:00 AM EDT Office Visit [facility] CHC MED & PEDS [address] [place], [place] [phone] Dominique Chavis MD [address] [place] [address] documented as of this encounter Visit Diagnoses Diagnosis Opioid dependence, uncomplicated (CMS/HCC) documented in this encounter Care Teams Automation Qa Lead Relationship Specialty Start Date End Date Dominique Chavis MD [address] [place] [address] PCP - General Family Medicine 11/05/18 [facility] 01/31/19 documented as of this encounter
--- OUTSIDE RECORDS SUMMARY | 2025-02-09 07:18 | XMS_ITS | Encounter Summary ---
Author Organization [employer] Address 75 [facility] 7t [place] [address] Care Team Providers Care Consulting Marine Engineer Name Role Phone Dominique Chavis MD Primary Care Provider [phone] Reason for Visit * Reason Onset Date Comments Med Change Request 02/26/2024 Encounter Details Date Type Department Care Team ([facility] st Contact Info) Description 02/26/2024 Telephone [facility]C MED & PEDS [address] [place] [address] Dominique Chavis MD [address] [place] [address] Med Change Request Social History Tobacco Use Types Packs/Day Years [...] encounter Miscellaneous Notes * Telephone Encounter - Richard Escalante - 02/28/2024 11:41 AM EDT [facility] script for Beclomethasone Diprop HFA (Qvar) 80 MCG/ACT inhaler is also not covered by insurance, [facility] insurance will cover for pulmicort inhaler * Telephone Encounter - Mamta Walsh - 02/26/2024 11:35 AM EDT Tc from pt requesting an alternative for Fluticasone Propionate, Inhal, (Flovent Diskus) 250 MCG/ACT aerosol powder. States insurance does no cover. Please contact pt at [phone] documented in this encounter Plan of Treatment Upcoming Encounters Date Type Department Care Team (Late st Contact Info) Description 02/09/2025 9:00 AM EDT Office Visit [facility] MED & PEDS [address] [place] [address] Brad Hall MD [address] [place] [address] 04/06/2025 9:00 AM EDT Office Visit [facility] MED & PEDS [address] [place] [address] Brad Hall MD [address] [place] [address] 05/07/2025 9:00 AM EDT Office Visit [facility] CHC MED & PEDS [address] [place] [address] Dominique Chavis MD [address] [place] [address] documented as of this encounter Visit Diagnoses Not on filedocumented in this encounter Additional Health Concerns Assessment Noted Time PHQ-9 Depression Total Score: 6 02/21/20 24 2:08 PM EDT documented as of this encounter Care Teams Consulting Marine Engineer Relationship Specialty Start Date End Date Dominique Chavis MD [address] [place] [address] PCP - General Family Medicine 11/05/18 [facility] 01/31/19 documented as of this encounter
--- OUTSIDE RECORDS SUMMARY | 2025-02-09 07:18 | XMS_ITS | Encounter Summary ---
Author Organization [employer] Address 75 [facility] 7t [place] [address] Care Team Providers Care Signal Tester Name Role Phone Dominique Chavis MD Primary Care Provider [phone] Reason for Visit * Reason Onset Date Comments FYI 09/03/2023 Encounter Details Date Type Department Care Team ([facility] st Contact Info) Description 09/03/2023 Telephone [facility] MEDICINE [address] [place] [address] Dominique Chavis MD [address] [place], [place] [phone] FYI Social History Tobacco Use Types Packs/Day [...] Telephone Encounter - Luis Troncoso RN - 09/03/2023 4:23 PM EDT Please see FYI below. * Telephone Encounter - Dennise Massey - 09/03/2023 4:18 PM EDT Tc from [place] with [facility] calling to inform PCP facility is renewing homecare servicesfor 60 more days, starting 09/07/2023 documented in this encounter Plan of Treatment Upcoming Encounters Date Type Department Care Team (Late st Contact Info) Description 02/09/2025 9:00 AM EDT Office Visit [facility] MED & PEDS [address] [place] [address] Brad Hall MD [address] [place] [address] 04/06/2025 9:00 AM EDT Office Visit [facility] MED & PEDS [address] [place] [address] Brad Hall MD [address] [place] [address] 05/07/2025 9:00 AM EDT Office Visit [facility] MED & PEDS [address] [place] [address] Dominique Chavis MD [address] [place] [address] documented as of this encounter Visit Diagnoses Not on filedocumented in this encounter Care Teams Signal Tester Relationship Specialty Start Date End Date Dominique Chavis MD [address] [place] [address] PCP - General Family Medicine 11/05[facility]18 [facility] documented as of this encounter
--- OUTSIDE RECORDS SUMMARY | 2025-02-09 07:18 | XMS_ITS | Encounter Summary ---
Author Organization [employer] Address [address] [facility] [address] [place] [address] Care Team Providers Care Concrete Bucket Loader Name Role Phone Dominique Chavis MD Primary Care Provider [phone] Encounter Details Date Type Department Care Team (Late st Contact Info) Description 12/13/2022 Abstract [facility] MED[facility] [address] [place] [address] Dominique Chavis MD [address] [place] [address] Social History Tobacco Use Types Packs/Day Years [...] 02/09/2025 9:00 AM EDT Office Visit [facility] [address] [place] [address] Brad Hall MD [address] [place] [address] 04/06/2025 9:00 AM EDT Office Visit [facility] [address] [place] [address] Brad Hall MD [address] [place] [address] 05/07/2025 9:00 AM EDT Office Visit [facility] [address] [place] [address] Dominique Chavis MD [address] [place] [address] documented as of this encounter Visit Diagnoses Not on filedocumented in this encounter Care Teams Concrete Bucket Loader Relationship Specialty Start Date End Date Dominique Chavis MD [address] [place] [address] PCP - General Family Medicine 11/05[facility] documented as of this encounter
--- OUTSIDE RECORDS SUMMARY | 2025-02-09 07:18 | XMS_ITS | Encounter Summary ---
Author Organization [employer] Address [address] [facility] [address] [place] [address] Care Team Providers Care Promotions Executive Producer Name Role Phone Dominique Chavis MD Primary Care Provider [phone] Encounter Details Date Type Department Care Team (Latest Contact Info) Description 02/05/2025 Travel Social History Tobacco Use Types Packs/Day Years Used Date Smoking Tobacco: Never Passive Smoke Exposure: Never Smokeless Tobacco: Never Depression Answer Date Recorded Patient Health Questionnaire-9 Score 14 02/05/2025 Patient Health Questionnaire-9 Score 14 02/05/2025 Last PHQ-9: Questionnaire Data Not on file 0 02/05/2025 Housing Stability Answer Date Recorded What is your housing situation today? I have lupillo min 02/13/[address] you li [...] Description 02/09/2025 9:00 AM EDT Office Visit [facility] [address] [place] [address] Brad Hall MD [address] [place] [address] 04/06/2025 9:00 AM EDT Office Visit [facility] [address] [place] [address] Brad Hall MD [address] [place] [address] 05/07/2025 9:00 AM EDT Office Visit [facility] [address] [place] [address] Dominique Chavis MD [address] [place] [address] documented as of this encounter Visit Diagnoses Not on filedocumented in this encounter Additional Health Concerns Assessment Noted Time PHQ-9 Depression Total Score: 14 025 8:42 AM EDT documented as of this encounter Care Teams Promotions Executive Producer Relationship Specialty Start Date End Date Dominique Chavis MD [address] [place] [address] PCP - General Family Medicine 11/05/18 [facility] 01/31/19 documented as of this encounter
--- OUTSIDE RECORDS SUMMARY | 2025-02-09 07:18 | XMS_ITS | Encounter Summary ---
Author Organization [employer] Address [address] [facility] [address] [place] [address] Care Team Providers Care Marine Electrician Helper Name Role Phone Dominique Chavis MD Primary Care Provider [phone] Reason for Visit * Reason Comments Med Refill Encounter Details Date Type Department Care Team (Late Contact Info) Description 05/24/2023 Refill [facility] [address] [place] [address] Dominique Chavis MD [address] [place] [address] Chronic idiopathic constipation Social History Tobacco Use [...] 9:00 AM EDT Office Visit [facility] [address] [place] [address] Brad Hall MD [address] [place], [place] [phone] 04/06/2025 9:00 AM EDT Office Visit [facility] [address] [place] [address] Brad Hall MD [address] [place], [place] [phone] 05/07/2025 9:00 AM EDT Office Visit [facility] [address] [place] [address] Dominique Chavis MD [address] [place] [address] documented as of this encounter Visit Diagnoses Diagnosis Chronic idiopathic constipation Unspecified constipation documented in this encounter Care Teams Marine Electrician Helper Relationship Specialty Start Date End Date Dominique Chavis MD [address] [place] [address] PCP - General Family Medicine 11/05/18 [facility] 01/31/19 documented as of this encounter
--- OUTSIDE RECORDS SUMMARY | 2025-02-09 07:18 | XMS_ITS | Encounter Summary ---
Author Organization [employer] Address [address] [facility] [address] [place] [address] Care Team Providers Care Supervisor Finishing Department Name Role Phone Dominique Chavis MD Primary Care Provider [phone] Encounter Details Date Type Department Care Team (Late Contact Info) Description 04/25/2023 Abstract [facility] MEDICINE [address] [place] [address] Dominique Chavis MD [address] [place], [place] [phone] Social History Tobacco Use Types Packs/Day Years Used Date Smoking Tobacco: Never Assessed Sex and Gender Information Value Date Recorded Sex Assigned at Male 09/04/2022 10:16 AM EDT Legal Sex Male 10:16 AM EDT Gender Identity Male 09/04/2022 10:16 AM EDT Sexual Orientation Straight 09/04/2022 10 :16 AM EDT COVID-19 Exposure Response Date Recorded In the last 10 days, have yo u been in contact with someone who was confirmed or suspected to have Coronavirus/COVID-19? No / Unsure 04/09/2023 8:25 AM EDT documented as of this encounter Plan of Treatment Upcoming Encounters Date Type Department Care Team (Late st Contact Info) Description 02/09/2025 9:00 AM EDT Office Visit [facility]S [address] [place], [place] [phone] Brad Hall MD [address] [place] [address] 04/06/2025 9:00 AM EDT Office Visit [facility] [address] [place], [place] [phone] Brad Hall MD [address] [place] [address] 05/07/2025 9:00 AM EDT Office Visit [facility]S [address] [place] [address] Dominique Chavis MD [address] [place] [address] documented as of this encounter Visit Diagnoses Not on filedocumented in this encounter Care Teams Supervisor Finishing Department Relationship Specialty Start Date End Date Dominique Chavis MD [address] [place] [address] PCP - General Family Medicine 11/05/18 [facility] 01/31/19 documented as of this encounter
--- OUTSIDE RECORDS SUMMARY | 2025-02-09 07:18 | XMS_ITS | Clinical Summary ---
Author Organization [employer] Address [address] [facility] 7[address] [place] [address] Care Team Providers Care Bridge Instructor Name Role Phone Dominique Chavis MD Primary Care Provider [phone] Allergies Active Allergy Reactions Criticality Noted Date Comments Aspirin 10/06/2022 Penicillins Hives 11/23/2010 Other reaction(s): unspecified Medications * This document contains information received from the source organization and may not represent a complete record from that organization. cholecalciferol (D3-5) 5,000 Units tablet Take 1 tablet by mouth 1 (one) time each day. 022 Active haloperidol (Haldol) 5 MG tablet take 1/2 tablet by oral route every HS Active naloxone (Narcan) 4 mg/0.1 mL nasal spray Administer 0.1 mL into affected nostril(s). Active QUEtiapine (SEROquel) 200 MG tablet take 1 tablet by oral route every day in evening Active Diclofenac Sodium (Voltaren) 1 % gel Apply topically every 8 (eight) hours. Active buPROPion SR (Wellbutrin SR) 150 MG 12 hr tablet Take 2 tablets by mouth at bed time. 019 Active albuterol (ProAir HFA) 108 (90 Base) MCG/ACT inhaler every 4 (four) hours. Active zolpidem (Ambien) 10 MG tablet take 1 Tablet by Oral route prioe sleep study test Active SUMAtriptan (Imitrex) 50 MG tablet Take 1 tablet by mouth once with fluids as early as possible after onset of a migraine attack ,may repeat after 2 hours if headache returns 9 tablet 1 Active LORazepam (Ativan) 1 MG tablet Take one (1) tablet by mouth every afternoon at 2p Active tamsulosin (Flomax) 0.4 MG 24 hr capsule Take 0.8 mg by mouth at bedtime. Active docusate sodium (Colace) 100 MG capsule TAKE 1 CAPSULE BY MOUTH two (2) times a day 60 capsule Active Aspirin Low Dose 81 MG EC tabletIndication s:Essential hypertension TAKE 1 TABLET BY MOUTH ONCE DAILY 90 tablet 3 Active Blood Glucose Monitoring Suppl (Orgenesis) w/Device kit USE DIRECTED 2 (two) times a day 1 kit Active omeprazole (PriLOSEC) [address] capsule TAKE 1 CAPSULE BY MOUTH ONCE DAILY 30 capsule 11 Active acetaminophen (Tylenol) 500 MG tablet Take 1 tablet (500 mg) by mouth every 6 (six) hours if needed for mild pain for up to 20 doses. 20 tablet Active chlorhexidine (Peridex) 0.12 % solution Swish 15 mL morning and night for 1 minute. Spit, do not swallow. Do not eat or drink for 30 minutes following use. 473 mL Active atorvastatin (Lipitor) 40 MG tabletIndication s:Type 2 diabetes mellitus without complication, without long-term current use of insulin (CMS/HCC) TAKE 1 TABLET BY MOUTH AT BEDTIME 30 tablet 11 Active lisinopril-hydro CHLOROthiazide 20-25 MG tablet TAKE 1 TABLET BY MOUTH ONCE DAILY 30 tablet Active Trulicity 4.5 MG/0.5ML solution pen-injector INJECT THE CONTENT OF 1 pen SUBCUTANEOUSLY EVERY WEEK 2 mL Active Global Inject Ease Lancets 28G miscIndications: Type 2 diabetes mellitus without complications (CMS/HCC) USE TO TEST FINGER STICK BLOOD SUGAR 3 (THREE) TIMES A DAY 100 each 11 Active Contour Next Test test stripIndications :Type 2 diabetes mellitus without complications (CMS/HCC) USE TO TEST FINGER STICK BLOOD SUGAR 3 (THREE) TIMES A DAY 100 strip 11 Active senna-docusate (Senna-Plus) 8.6-50 MG tablet TAKE 1 TABLET BY MOUTH EVERY MORNING 30 tablet 11 Active carvedilol (Coreg) 3.125 MG tabletIndication s:Essential hypertension TAKE 1 TABLET BY MOUTH two (2) times a day. TAKE WITH FOOD 60 tablet 5 024 Active clonazePAM (KlonoPIN) 1 MG tabletIndication s:Type 2 diabetes mellitus without complication, without long-term current use of insulin (CMS/[facility]) Take 1 tab 1 hour before dental procedures 5 tablet 024 Active Tirzepatide-Weig ht Management (Zepbound) 2.5 MG/0.5ML solution auto-injector Inject 0.5 mL (2.5 mg) under the skin 1 (one) time per week. Do not start before November 05, 2024. 2 mL 1 025 Active clotrimazole-bet amethasone (Lotrisone) cream APPLY TO THE AFFECTED AREA TOPICALLY two (2) times a day 45 g 1 025 Active Diclofenac Sodium 1 % gel APPLY TO THE AFFECTED AREA TOPICALLY 3 (THREE) TIMES A DAY NEEDED FOR PAIN 100 g 5 025 Active ibuprofen 600 MG tablet TAKE 1 TABLET BY MOUTH 3 (THREE) TIMES A DAY 90 tablet 1 025 Active fluticasone furoate (Arnuity Ellipta) 50 MCG/ACT inhaler Inhale 1 puff Once per day. Rinse mouth with water after use to reduce aftertaste and incidence of candidiasis. Do not swallow. 1 each 025 2025 Active Farxiga 5 MG Take 1 tablet (5 mg) by mouth in the morning. 30 tablet 025 Active glipiZIDE (Glucotrol) 10 MG tablet Take 1 tablet (10 mg) by mouth before breakfast and before evening meal. 60 tablet 025 2025 Active Buprenorphine HCl-Naloxone HCl (Suboxone) 8-2 MG SL filmIndications: Opioid dependence, uncomplicated (CMS/HCC) Place 1 Film under the tongue Once per day. Do not start before February 09, 2025. 28 Film 1 025 2024 Active cholecalciferol (Vitamin D-3) 125 MCG (5000 UT) capsuleIndicatio ns:Vitamin D deficiency TAKE 1 CAPSULE BY MOUTH ONCE DAILY 30 capsule 2 025 Active melatonin 3 MG tablet take one (1) tablet by mouth at bedtime 025 Active QUEtiapine (SEROquel) 50 MG tablet 025 Active dapagliflozin (Farxiga) 5 MG Take 1 tablet (5 mg) by mouth in the morning. 30 tablet 11 024 2024 Discontinued glipiZIDE (Glucotrol) 10 MG tablet Take 1 tablet (10 mg) by mouth before breakfast and before evening meal. 60 tablet 11 024 2024 Discontinued cholecalciferol (Vitamin D-3) 125 MCG (5000 UT) capsuleIndicatio ns:Vitamin D deficiency TAKE 1 CAPSULE BY MOUTH ONCE DAILY 30 capsule 2 024 2024 Discontinued Buprenorphine HCl-Naloxone HCl (Suboxone) 8-2 MG SL filmIndications: Opioid dependence, uncomplicated ([facility]) Place 1 Film under the tongue Once per day. 28 Film 1 025 2024 Discontinued(R eorder (will not trigger notification to Pharmacy)) Active Problems Problem Noted Date Diagnosed Date Dental abscess 05/19/2024 Retained tooth root 05/19/2024 Encounter for long-term use of opiate analgesic 10/06/2022 Chronic pain syndrome 10/11/2017 Idiopathic osteoarthritis 08/31/2015 Recurrent major depressive episodes, in full rem ission 08/31/2015 Type 2 diabetes mellitus without complication Uncontrolled diabetes mellitus 02/20/2013 Anxiety state 12/08/2011 Obesity 12/08/2011 Depressive disorder 12/08/2011 Breast lump 08/16/2011 Hematochezia 06/28/2011 Hemorrhoids 06/28/2011 Essential hypertension 04/18/2011 Encounters Date Type Department Care Team Description 02/08/2025 Orders Only [facility] MED & PEDS [address] [place] [address] Dominique Chavis MD Foot pain, right (Primary Dx); Type 2 diabetes mellitus without complication, without long-term current use of insulin ([facility]) 02/06/2025 Telephone [facility] [address] [place] [address] Dominique Chavis MD 02/05/2025 9:00 AM EDT Office Visit [facility] PEDS [address] [place] [address] Dominique Chavis MD Foot pain, right (Primary Dx); Idiopathic osteoarthritis; Dietary counseling; Exercise counseling; Type 2 diabetes mellitus without complication, without long-term current use of insulin ([facility]); Depressive disorder 02/05/2025 Travel 02/03/2025 Telephone [facility] MED & PEDS [address] [place] [address] Dominique Chavis MD Chart Prep 01/29/2025 Refill [facility] MEDICINE [address] [place] [address] Dominique Chavis MD Vitamin D deficiency; Essential hypertension 01/26/2025 Refill [facility] MEDICINE [address] [place] [address] Preeti Johnson, RN Opioid dependence, uncomplicated ([facility]/HCC) 01/24/2025 Refill [facility] PEDS [address] [place] [address] Dominique Chavis MD 01/16/2025 Population Health Risk Score [facility] () Department [address] [place] [address] [phone] Provider, Population Health Generic 01/15/2025 Refill [facility] PEDS [address] [place] [address] Dominique Chavis MD 01/06/2025 Orders Only [facility] PEDS [address] [place] [address] Dominique Chavis MD 01/06/2025 Orders Only [facility] PEDS [address] [place] [address] Dominique Chavis MD 01/06/2025 Telephone [facility] PEDS [address] [place] [address] Dominique Chavis MD Prior Authorization (Change ) 01/04/2025 Refill [facility] MEDICINE [address] [place] [address] Dominique Chavis MD 12/22/2024 Refill [facility] MED & PEDS [address] [place] [address] Dominique Chavis MD 12/15/2024 9:00 AM EST Office Visit [facility] MED & PEDS [address] [place], [place] [phone] Brad Hall MD Opioid type dependence, continuous ([facility]) (Primary Dx); Opioid dependence, uncomplicated ([facility]) 12/15/2024 Travel 12/11/2024 Telephone [facility] MEDICINE [address] [place] [address] Yarelis Oneil [place] 12/11/2024 Refill [facility] MEDICINE [address] [place] [address] Jamel Coleman, RN Opioid dependence, uncomplicated ([facility]) 11/11/2024 Telephone [facility] MEDICINE [address] [place], [place] [phone] Preeti Johnson, ANN from Last 3 Months Immunizations Name Administration Dates Next Due Hep B, adult 12/09/2019,08/07/2019 Influenza injectable quadriv alent IIV4 with preservative 09/10/2018,09/11/2017,08/31/2015 Influenza injectable quadriv alent preservative free 08/29/2023,08/31/2022,11/15/2020,2018,09/05/2016 Influenza, seasonal, injecta ble, preservative free 10/23/2024 Moderna Covid-19 Vaccine 12+ 12/01/2021,01/29/20 21,12/31/2020 TD (adult), 2 Lf tetanus tox oid, preservative free, adsorbed 09/25/2022 Tdap 10/27/2016 Zoster, Recombinant 11/30/2020,09/28/2020 Social History Tobacco Use Types Packs/Day Years [...] Orientation Straight 09/04/2022 10 :16 AM EDT Last Filed Vital Signs Vital Sign Reading [...] Mass Index 46.94 02/05/2025 8:39 AM EDT Plan of Treatment Upcoming Encounters Date Type Department Care Team (Late st Contact Info) Description 02/09/2025 9:00 AM EDT Office Visit [facility] MED & PEDS [address] [place] [address] Brad Hall MD [address] [place] [address] 04/06/2025 9:00 AM EDT Office Visit [facility] MED & PEDS [address] [place] [address] Brad Hall MD [address] [place], [place] [phone] 05/07/2025 9:00 AM EDT Office Visit [facility] MED & PEDS [address] [place] [address] Dominique Chavis MD [address] [place] [address] Health Maintenance Due Date Last Done Comments CT Colonography 1962 Colonoscopy 1962 Colorectal Cancer Screening 1962 Dental Oral Exam 1962 Dental Prophylaxis 1962 Dental X-Ray: Bitewings 1962 FIT DNA/Cologuard 1962 FIT 1962 FOBT 1962 Sigmoidoscopy 1962 Pneumococcal Vaccine: 50+ Years (1 of 2 - PCV) 1981 Hepatitis B Vaccines (3 of 3 - 19+ 3-dose series) 02/06/2020 12/09/2019, 08/07/2019 RSV Patients and Patients Aged 60 years or older (1 - Risk 60-74 years 1-dose series) 2022 Diabetes: Urine Protein Screening 04/13/2023 04/13/2022, 12/31/2020, 01/06/2020 Diabetes: Hemoglobin A1C 05/22/2024 024, 07/03/2023, 03/09/2023, Additional history exists COVID-19 Vaccine ( season) 2024 12/01/2021, 01/28/2021, 12/31/2020 Lipid Panel 07/10/2024 07/10/2023, 05/2022, 12/31/2020 Eye Exam 09/06/2024 09/06/2023, 12/2022, 09/06/2023, Additional history exists Depression Monitoring (PHQ-9) 08/07/2025 02/05/2025, 02/05/2025 Tobacco Screening 10/23/2025 10/23/2024 Alcohol/Substance Use Screening 02/05/2026 02/05/2025 Depression Screening 02/05/2026 02/05/2025, 02/06/20 Diabetes: Foot Exam 02/05/2026 02/05/2025, 02/05/2025, 02/05/2025, Additional history exists SDOH Screening 02/05/2026 02/05/2025 Dental X-Ray: Full Mouth 05/20/2027 05/19/2024, 03/06 DTaP/Tdap/Td Vaccines (3 - Td or Tdap) 09/25/2032 09/25/2022, 10/27/2016 Zoster Vaccines Completed 11/30/2020, 09/28/2020 HIV Screening Completed 03/09/2023, 12/19/2021 Hepatitis C Screening Completed 03/09/2023 , 12/19/2021, 10/08/2020 Influenza Vaccine Completed 10/23/2024, , 08/31/2022, Additional history exists HIB Vaccines Aged Out No longer eligi ble based on patient's age to complete this topic HPV Vaccines Aged Out No longer eligi ble based on patient's age to complete this topic Hepatitis A Vaccines Aged Out No long er eligible based on patient's age to complete this topic IPV Vaccines Aged Out No longer eligi ble based on patient's age to complete this topic Meningococcal Vaccine Aged Out No jaguar juan eligible based on patient's age to complete this topic RSV under 20 months Aged Out No longe r eligible based on patient's age to complete this topic Rotavirus Vaccines Aged Out No longer eligible based on patient's age to complete this topic Procedures Procedure Name Priority Date/Time Associated Diagnosis Comments POCT MANDA-14 URINE DRUG SCREEN Routine 12/15/2024 9:08 AM EST Opioid type dependence, continuous (CMS/HCC) PANORAMIC RADIOGRAPHIC IMAGE Routine 05/19/2024 1:00 PM EDT POCT GLYCATED HEMOGLOBIN, TOTAL Routine 02/21/2024 2:10 PM EDT Type 2 diabetes mellitus without complication, without long-term current use of insulin (CMS/HCC) LIPID PANEL, STANDARD Routine 07/10/2023 8:06 AM EDT Type 2 diabetes mellitus without complication, without long-term current use of insulin (CMS/HCC) Colon cancer screening Diabetes mellitus due to underlying condition with hyperglycemia, without long-term current use of insulin (CMS/HCC) HEPATITIS C AB W/REFL TO HCV RNA, QN, PCR Routine 03/09/2023 11:26 AM EDT Opioid dependence, uncomplicated (CMS/HCC) HIV 1/2 ANTIGEN/ANTIBODY, FOURTH GENERATION W/RFL Routine 03/09/2023 11:26 AM EDT Opioid dependence, uncomplicated (CMS/HCC) Contact with and (suspected) exposure to other viral communicable diseases ALBUMIN, RANDOM URINE W/CREATININE Routine 04/13/2022 8:30 AM EDT from Last 3 Months or Most Recently Relevant to Health Maintenance Results * POCT MANDA-14 Urine Drug Screen (12/15/2024 9:08 AM EST) THC Negative Cocaine Screen, Urine Negative Opiate Screen, Urine Negative Methamphetamine Screen Urine Negative Amphetamine Screen, Urine Negative Benzodiazepines Screen, Urine Negative Barbiturate Screen, Urine Negative Methadone Screen, Urine Negative Buprenophine Screen, Urine Positive TCA, Urine Negative MDMA Urine Negative ng/mL Oxycodone Screen, Urine Negative Phencyclidine (PCP), Urine Negative Propoxyphene, Urine Negative Fentanyl, Urine Negative Urine Urine specimen obtained by clean catch procedure / Unknown 12/15/2024 9:08 AM EST Brad Hall MD POINT OF CARE TEST ENTER/EDIT OR DERABLES Final Result * (ABNORMAL) POCT HGB A1C (02/21/2024 2:10 PM EDT) Hemoglobin A1C 7.6(A) 4.0 - 6.0 % QC Media Lot # [id number] Lot# Expiration Date Blood 02/21/2024 2:10 PM EDT Dominique Chavis MD POINT OF CARE TEST ENTER/EDIT ORDERABLES Final Result * (ABNORMAL) Lipid Panel, Standard (07/10/2023 8:06 AM EDT) Triglycerides 239(H) <150 mg/dL [facility] Comment:Desirable Triglyceri de: less than 150 mg/dLBorderline High Triglyceride 150-199 mg/dLHigh Triglyceride: 200-499 mg/dLVery High Triglyceride: greater than or equal to 5OO mg/dL Cholesterol 170 <200 mg/dL [facility] Comment:Desirable Cholestero l: less than 200 mg/dLBorderline High Cholesterol: 200-239 mg/dLHigh Cholesterol: greater than 239 mg/dL LDL Cholesterol Calculated 85 <100 mg/dL [facility] Comment:Desirable LDL: less than 100 mg/dLNear Optimal/Above Optimal LDL: 110- 129 mg/dLBorderline High LDL: 130-159 mg/dLHigh LDL: 160-189 mg/dLVery High LDL: greater than or equal to 190 mg/dL HDL Cholesterol 38(L) >40 mg/dL [facility] Comment:Desirable HDL: great er than 40 mg/dL Note: This HDL assay may give artificially low results in patients with liver disease. Blood Venous blood specimen / Unknown 07/10/2023 8:06 AM EDT 07/10/2023 2:17 PM EDT Dominique Chavis MD LAB BLOOD ORDERABLES Final Re sult [facility] [address] [place] [phone] * Hepatitis C Antibody with Reflex to HCV, RNA, Quantitative, Real-Time PCR (03/09/2023 11:26 AM EDT) Hepatitis C Antibody NON-REACT RANDAL NON-REACT RANDAL [facility] Index 0.08 <1.00 [facility] Comment: HCV antibody was non-reactive. There is no laboratory evidence of HCV infection. In most cases, no further action is required. However, if recent HCV exposure is suspected, a test for HCV RNA (test code 48336) is suggested. For additional information please refer to http://education.[employer]/faq/LPD45u3 (This link is being provided for informational/ educational purposes only.) Blood Venous blood specimen / Unknown 03/09/2023 11:26 AM EDT 03/09/2023 11:26 AM EDT Narrative [facility] - 03/11/2023 8:16 PM EDT PATIENT UNABLE TO VOID; ADVISED TO RETURN FOR COLLECTION. us Brad Hall MD LAB BLOOD ORDERABLES Final Resul t [facility] [address], [place] [address] [facility] [address] [place] [address] * HIV-1/2 Antigen and Antibodies, Fourth Generation, with Reflexes (03/09/2023 11:26 AM EDT) HIV Antigen/Antibody, 4th Generation NON-REAC TIVE NON-REAC TIVE [facility] [employer] Comment: HIV-1 antigen and HIV-1/HIV-2 antibodies were not detected. There is no laboratory evidence of HIV infection. PLEASE NOTE: This information has been disclosed to you from records whose confidentiality may be protected by state law. ??If your state requires such protection, then the state law prohibits you from making any further disclosure of the information without the specific written consent of the person to whom it pertains, or as otherwise permitted by law. A general authorization for the release of medical or other information is NOT sufficient for this purpose. ?? For additional information please refer to http://education.[employer]/faq/IOY789 (This link is being provided for informational/ educational purposes only.) The performance of this assay has not been clinically validated in patients less than 2 years old. Blood Venous blood specimen / Unknown 03/09/2023 11:26 AM EDT 03/09/2023 11:26 AM EDT Narrative [facility] - 03/11/2023 8:16 PM EDT PATIENT UNABLE TO VOID; ADVISED TO RETURN FOR COLLECTION. us Brad Hall MD LAB BLOOD ORDERABLES Final Resul t Performing Organization Address [facility] de Phone Number [facility] [address], [place] [address] [facility] [address] [place] [address] * ALBUMIN, RANDOM URINE W/CREATININE (04/13/2022 8:30 AM EDT) Microalbumin Urine 0.3 See Note: mg/dL [facility] Comment: Reference Range: ?? Reference Range Not established Microalb/Creat Ratio 5 <30 mcg/mg creat [facility] Comment: ?? The ADA defines abnormalities in albumin excretion as follows: ?? Albuminuria Category ?Result (mcg/mg creatinine) ?? Normal to Mildly increased ?? <30 Moderately increased ? 30-299 ?? Severely increased ? > OR = 300 ?? The ADA recommends that at least two of three specimens collected within a 3-6 month period be abnormal before considering a patient to be within a diagnostic category. Creatinine, Urine 66 20 - 320 mg/dL [facility] 04/13/2022 8:30 AM EDT us Dominique Chavis MD LAB URINE ORDERABLES Final Re sult Performing Organization Address [facility]/State/ZIP Co de Phone Number [facility] [address] from Last 3 Months or Most Recently Relevant to Health Maintenance Insurance MEDICARE [facility] STANDARD DENTAL-[employer] MED[employer] STAND ADULT Care Teams Bridge Instructor Relationship Specialty Start Date End Date Dominique Chavis MD [address] [place] [address] [place]ETT Montero [address] PCP - General Family Medicine 11/05/18 [facility] 01/[facility]
--- OUTSIDE RECORDS SUMMARY | 2025-02-09 07:18 | XMS_ITS | Encounter Summary ---
Author Organization [facility] Address [address] [facility] [address] [place] [address] Care Team Providers Care Trash Collector Supervisor Name Role Phone Dominique Chavis MD Primary Care Provider Encounter Details Date Type Department Care Team (Late st Contact Info) Description 02/06/2025 Telephone [facility] [address] [place] [address] Dominique Chavis MD [address] [place], [place] [phone] Social History Tobacco Use Types Packs/Day Years [...] encounter Miscellaneous Notes * Telephone Encounter - Shweta Quiroga - 02/06/2025 3:[address] Good [address]. Chavis I received a fax from [facility] orthopedics stating to refer to podiatry due to diagnosis of foot pain. Would you like for patient to see Dr. Stephens for OA of knee only? If so please send a separate referral, thank you. documented in this encounter Plan of Treatment Upcoming Encounters Date Type Department Care Team (Late st Contact Info) Description 02/09/2025 9:00 AM EDT Office Visit [facility] MED & PEDS [address] [place] [address] Brad Hall MD [address] [place] [address] 04/06/2025 9:00 AM EDT Office Visit [facility] MED & PEDS [address] [place] [address] Brad Hall MD [address] [place] [address] 05/07/2025 9:00 AM EDT Office Visit [facility] MED & PEDS [address] [place] [address] Dominique Chavis MD [address] [place] [address] documented as of this encounter Visit Diagnoses Not on filedocumented in this encounter Additional Health Concerns Assessment Noted Time PHQ-9 Depression Total Score: 14 025 8:42 AM EDT documented as of this encounter Care Teams Trash Collector Supervisor Relationship Specialty Start Date End Date Dominique Chavis MD [address] [place] [address] PCP - General Family Medicine 11/05/18 [facility] 01/31/19 documented as of this encounter
[2025-02-09 10:28] LABS: MANUAL DIFF FLAG NO
[2025-02-09 10:45] LABS: Basophils Percent Auto 0.4 % (0-2); Eosinophils Absolute Auto 0.1 X10*3/uL (0.0-0.4); Eosinophils Percent Auto 1.3 % (0-4); Hemoglobin 15.6 g/dl (14.0-18.0); Imm Gran Abs Auto 0.01 X10*3/uL (0.00-0.03); Imm Gran Pct Auto 0.2 % (0.0-0.4); Lymphocytes Percent Auto 38.1 % (20-40); Mean Corpuscular HGB Conc 33.2 g/dl (31.0-36.0); Mean Corpuscular Hemoglobin 30.2 pg (27.0-33.0); Mean Corpuscular Volume 91.1 fL (80.0-98.0); Mean Platelet Volume 9.9 fL (9.4-12.4); Monocytes Absolute Auto 0.4 X10*3/uL (0.1-1.2); Monocytes Percent Auto 7.5 % (2-11); Neutrophils Absolute Auto 2.8 x10*3/uL (2.0-8.3); Neutrophils Percent Auto 52.5 % (45-73); Platelet Count 245 X10*3/uL (160-400); Red Blood Count 5.16 X10*6/uL (4.60-5.80); Red Cell Distribution Width 12.9 % (11.0-16.0); White Blood Count 5.4 X10*3/uL (4.8-10.8)
[2025-02-09 11:16] LABS: Creatinine Urine 70.89 mg/dL; Microalbum/Creatinine Ratio Ur 12.6 ug/mg cr (<30)
[2025-02-09 11:24] LABS: PSA,Total (Free>4and<10) 0.23 ng/mL (0.00-4.00)
[2025-02-09 11:35] LABS: Anion Gap 15 (12-20); Blood Urea Nitrogen 15 mg/dL (9-16); Calcium 9.6 mg/dL (8.4-10.2); Carbon Dioxide 26 mmol/L (22-29); Chloride 100 mmol/L (96-108); Cholesterol 179 mg/dL (<200); Estimated Glomerular Filt Rate > 60; Glucose Fasting 161 mg/dL (60-99); HDL Cholesterol 33 mg/dL (>40); LDL Cholesterol Calculated 99 mg/dL (<100); Potassium 4.4 mmol/L (3.3-5.1); Sodium 137 mmol/L (135-145); TSH reflex Free T4 1.04 uIU/mL (0.32-4.0); Triglycerides 237 mg/dL (<150)
== END 2025-02-09 07:16 | disposition home or self-care (01) ==
LOC: HO.HMGCX 07:15
PROVIDERS: PCP Pediatrics; Visit Provider Pediatrics
DX: E11.9 Type 2 diabetes mellitus without complications (principal); M79.671 Pain in right foot; Z12.5 Encounter for screening for malignant neoplasm of prostate
CPT/HCPCS: 36415; 73630; 80048; 80061; 82043; 82570; 84153; 84443; 85025

== ENCOUNTER → 2025-02-09 08:49 | Outpatient (BNV) | payer MEDICARE, MEDICAID, SELFPAY | PROVIDERS: PCP Pediatrics; Visit Provider Radiology Diagnostic Radiology | DX: M77.31 Calcaneal spur, right foot (principal) | CPT/HCPCS: 73630 ==

== ENCOUNTER 2025-10-20 09:21 | Outpatient (REF) | payer MEDICARE, MEDICAID, SELFPAY ==
--- OUTSIDE RECORDS SUMMARY | 2025-10-20 09:00 | XMS_ITS | Encounter Summary ---
Author Organization [employer] Address [address] [facility] 7t [place] [address] Care Team Providers Care Gravity Manager Name Role Phone Dominique Chavis MD Primary Care Provider [phone] Encounter Details Date Type Department Care Team ([facility] st Contact Info) Description 10/20/2025 9:00 AM EST Office Visit [facility] CHC MED & PEDS [address] [place], [place] [phone] Dominique Chavis MD [address] [place] [address] Type 2 diabetes mellitus without complication, without long-term current use of insulin (HCC) (Primary Dx); Essential hypertension; Class 3 severe obesity with serious comorbidity and body mass index (BMI) of 45.0 to 49.9 in adult, unspecified obesity type (HCC); Encounter for long-term use of opiate analgesic Social History Tobacco Use Types Packs/Day Years Used Date Smoking Tobacco: Never Passive Smoke Exposure: Never Smokeless Tobacco: Never Depression Answer Date Recorded Patient Health Questionnaire-9 Score 3 10/20/2025 Patient Health Questionnaire-9 Score 3 10/20/2025 Last PHQ-9: Questionnaire Data Not on file 1 12/21/2024 Housing Stability Answer Date Recorded What is [...] Answer Date Recorded Patient Health Questionnaire-2 Score 2 10/20/2025 Internet Access Answer Date Recorded Internet Access [...] Sign Reading Time Taken Comments Blood Pressure 130/70 10/20/2025 8:57 AM EST Pulse 64 10/20/2025 8:57 AM EST Temperature 36.6 C (97.9 F) 10/20/2025 8:57 AM EST Respiratory Rate 20 10/20/2025 8:57 AM EST Oxygen Saturation - - Inhaled Oxygen Concentration - - Weight 123 kg (272 lb) 10/20/2025 8:57 AM EST Height - - Body Mass Index 43.9 05/07/2025 8:53 AM EDT documented in this encounter Functional Status * Over the past 2 weeks, how often have you been bothered by any of the following problems? Question Answer Date of Assessment Author Patient Health Questionnaire -2 Score 2 10/20/2025 9:09 AM Diomedes Mittal MA * Little interest or pleasure in doing things Answer Date of Assessment Author Several days 10/20/2025 9:09 AM Nalini Mittal MA * Feeling down, depressed, or hopeless Answer Date of Assessment Author Several days 10/20/2025 9:09 AM Nalini Mittal MA * Trouble falling or staying asleep, or sleeping too much Answer Date of Assessment Author Not at all 10/20/2025 9:09 AM Nalini Mittal MA * Feeling tired or having little energy Answer Date of Assessment Author Not at all 10/20/2025 9:09 AM Nalini Mittal MA * Poor appetite or overeating Answer Date of Assessment Author Not at all 10/20/2025 9:09 AM Nalini Mittal MA * Feeling bad about yourself - or that you are a failure or have let yourself or your family down Answer Date of Assessment Author Several days 10/20/2025 9:09 AM Nalini Mittal MA * Trouble concentrating on things, such as reading the newspaper or watching television Answer Date of Assessment Author Not at all 10/20/2025 9:09 AM Nalini Mittal MA * Moving or speaking so slowly that other people could have noticed? Or the opposite - being so fidgety or restless that you have been moving around a lot more than usual. Answer Date of Assessment Author Not at all 10/20/2025 9:09 AM Nalini Mittal MA * Thoughts that you would be better off or hurting yourself in some way Answer Date of Assessment Author Not at all 10/20/2025 9:09 AM Nalini Mittal MA * Patient Health Questionnaire-9 Score Answer Date of Assessment Author 3 10/20/2025 9:09 AM Nalini Mittal MA * How difficult have these problems made it for you to do your work, take care of things at home, or get along with other people? Answer Date of Assessment Author Somewhat difficult 10/20/2025 9:09 AM Nalini Aguilar MA documented as of this encounter Progress Notes * Dominique Chavis MD - 10/20/2025 9:00 AM EST Subjective Patient ID: Garrick Cornejo is a 65 y.o. male who presents for f/u weight and diabetes. Garrick Cornejo, age 65 years Hypoglycemia Garrick Cornejo reports episodes of low blood sugar, with symptoms including seeing spots when glucose drops. These episodes occur frequently enough that he must remain vigilant, and he sometimes treats them with candy. He denies nocturnal hypoglycemia, stating he no longer wakes up at night as before. He notes decreased appetite, which he attributes to his medication. He has experienced ongoing weight loss, though the rate has slowed compared to previous visits.only lost 2 lbs since August. Diabetes Mellitus History of elevated hemoglobin A1c, with a value of 6.9% in August. No recent home glucose readings provided. No recent laboratory glucose check prior to this visit. [facility] No new medications started. Continues current medications for diabetes, cholesterol, psychiatric condition, heart, and blood pressure. Review of Systems Constitutional: Negative for activity [...] color change and rash. Neurological: Negative for dizziness, tremors, weakness, light-headedness and headaches. Hematological: Negative for adenopathy. Psychiatric/Behavioral: Negative for dysphoric mood, hallucinations, sleep disturbance and suicidalideas. The patient is not nervous/anxious. Objective BP 130/70 (BP Location: Left arm, Patient Position: Sitting, BP Cuff Size: Adult) Pulse64 Temp 97.9 ??F (36.6 ??C) (Oral) Resp 20 Wt 272 lb (123 kg) BMI 43.90 kg/m?? Physical Exam Vitals reviewed. Constitutional: General: He is not in acute distress. Appearance: He is obese. HENT: Head: Normocephalic. Eyes: Extraocular Movements: Extraocular movements intact. Pupils: Pupils are equal, round, and reactive to light. Cardiovascular: Rate and Rhythm: Normal rate and regular rhythm. Heart sounds: Normal heart sounds. No murmur heard. Pulmonary: Effort: No respiratory distress. Breath sounds: No wheezing. Abdominal: General: There is distension. Palpations: Abdomen is soft. Musculoskeletal: Right lower leg: No edema. Left lower leg: No edema. Neurological: Mental Status: He is alert and oriented to person, place, and time. Mental status is at baseline. Psychiatric: Behavior: Behavior normal. Assessment/Plan Type 2 diabetes mellitus without complication, without long-term current use of insulin (HCC): - Type 2 diabetes mellitus, currently managed without insulin. Recent episodes of hypoglycemia reported, associated with symptoms such as visual disturbances. Glycemic control previously assessed with HbA1c of 6.9% in August. - Ordered HbA1c and glucose laboratory tests. Advised to monitor for hypoglycemia and use candy to treat low blood sugar episodes. Will reassess diabetes management after lab results. Weight management: - Ongoing weight loss, with recent plateau in progress. - Increased dose of Mounjaro from 5 mg to 7.5 mg. Advised to continue weight loss efforts. Will monitor weight and adjust therapy as needed. Medication adjustment: - Polypharmacy with multiple medications, including Suboxone, antihypertensives, statin, and psychiatric medications. Recent hypoglycemia episodes prompted medication review. - Discontinued glipizide due to hypoglycemia risk. Instructed to continue other medications as prescribed. Medication changes communicated to nursing staff for implementation. Influenza vaccination: - Influenza vaccination administered during visit. - No further action required. Nutrition and protein intake: - Risk of muscle loss with ongoing weight reduction. - Recommended increasing dietary protein intake through higher-protein yogurts, lean meats, fish, beans, and protein shakes. Advised to avoid high-fat dairy products and desserts. Specialist follow-up: - Ongoing podiatry and therapy care. - Confirmed upcoming podiatry appointment in November 2025. Advised to follow up with therapist as scheduled. Diagnoses and all orders for this visit: Type 2 diabetes mellitus without complication, without long-term current use of insulin (HCC) - Tirzepatide (Mounjaro) 7.5 MG/0.5ML solution auto-injector; Inject 7.5 mg under the skin 1 (one) time per week. - Hemoglobin A1c; Future Essential hypertension Class 3 severe obesity with serious comorbidity and body mass index (BMI) of 45.0 to 49.9 in adult,unspecified obesity type (HCC) Encounter for long-term use of opiate analgesic documented in this encounter Plan of Treatment Upcoming Encounters Date Type Department Care Team (Late st Contact Info) Description 11/16/2025 9:15 AM EST Office Visit [facility] MED & PEDS [address] [place], [place] [phone] Brad Hall MD [address] [place] [address] 01/19/2026 9:00 AM EDT Office Visit [facility] CHC MED & PEDS [address] [place] [address] Dominique Chavis MD [address] [place] [address] Scheduled Orders Name Type Priority Associated Diagnoses Orde r Schedule Hemoglobin A1c Lab Routine Type 2 diabetes mellitus without complication, without long-term current use of insulin (HCC) Expected: 10/20/2025 (Approximate), Expires: 10/20/2026 documented as of this encounter Goals Goal Patient Goal Type Associated Problems Recent Progress Patient-Stated? Author Help patients manage their type 2 diabetes Care Plan Help patients manage their type 2 diabetes No Brad Hall MD Weekly blood pressure task Care Plan Weekly blood pressure task No Brad Hall MD Help patients manage their type 2 diabetes Care Plan Help patients manage their type 2 diabetes No Brad Hall MD Patient has chronic kidney disease Care Plan Patient has chronic kidney disease No Brad Hall MD Weekly blood pressure task Care Plan Weekly blood pressure task No Brad Hall MD Patient has chronic kidney disease Care Plan Patient has chronic kidney disease No Brad Hall MD Weekly blood pressure task Care Plan Weekly blood pressure task No Liborio, Rola, OD Weekly blood pressure task Care Plan Weekly blood pressure task No Liborio, Rola, OD Patient has diabetic eye disease Care Plan Patient has diabetic eye disease No Liborio, Rola, OD Patient has diabetic eye disease Care Plan Patient has diabetic eye disease No Liborio, Rola, OD Patient has chronic kidney disease Care Plan Patient has chronic kidney disease No Liborio, Rola, OD Patient has chronic kidney disease Care Plan Patient has chronic kidney disease No Ilborio, Rola, OD Weekly blood pressure task Care Plan Weekly blood pressure task No Nancy Castañeda Weekly blood pressure task Care Plan Weekly blood pressure task No Nancy Castañeda Patient has chronic kidney disease Care Plan Patient has chronic kidney disease No Nancy Castañeda Patient has chronic kidney disease Care Plan Patient has chronic kidney disease No Nancy Castañeda Weekly blood pressure task Care Plan Weekly blood pressure task No Juana Wheeler Weekly blood pressure task Care Plan Weekly blood pressure task No Juana Wheeler Patient has chronic kidney disease Care Plan Patient has chronic kidney disease No Juana Wheeler Patient has chronic kidney disease Care Plan Patient has chronic kidney disease No Juana Wheeler Weekly blood pressure task Care Plan Weekly blood pressure task No Nalini Oneil [place] Weekly blood pressure task Care Plan Weekly blood pressure task No Nalini Oneil [place] Patient has chronic kidney disease Care Plan Patient has chronic kidney disease No Nalini Oneil [place] Patient has chronic kidney disease Care Plan Patient has chronic kidney disease No Nalini Oneil [place] Weekly blood pressure task Care Plan Weekly blood pressure task No Dominique Chavis MD Weekly blood pressure task Care Plan Weekly blood pressure task No Dominique Chavis MD Patient has chronic kidney disease Care Plan Patient has chronic kidney disease No Dominique Chavis MD Patient has chronic kidney disease Care Plan Patient has chronic kidney disease No Dominique Chavis MD documented as of this encounter Visit Diagnoses Diagnosis Type 2 diabetes mellitus without complication, without long-term current use of insulin (HCC)- Primary Essential hypertension Unspecified essential hypertension Class 3 severe obesity with serious comorbidity and body mass index (BMI) of 45.0 to 49.9 in adult, unspecified obesity type (HCC) Encounter for long-term use of opiate analgesic Encounter for long-term (current) use of other medications documented in this encounter Additional Health Concerns Active Problems Noted Date Diagnosed Date Help patients manage their type 2 diabetes 09/21 Weekly blood pressure task 09/21/2025 Help patients manage their type 2 diabetes 09/21 Patient has chronic kidney disease 09/21/2025 Weekly blood pressure task 09/21/2025 Patient has chronic kidney disease 09/21/2025 Weekly blood pressure task 09/25/2025 Weekly blood pressure task 09/25/2025 Patient has diabetic eye disease 09/25/2025 Patient has diabetic eye disease 09/25/2025 Patient has chronic kidney disease 09/25/2025 Patient has chronic kidney disease 09/25/2025 Weekly blood pressure task 10/07/2025 Weekly blood pressure task 10/07/2025 Patient has chronic kidney disease 10/07/2025 Patient has chronic kidney disease 10/07/2025 Weekly blood pressure task 10/13/2025 Weekly blood pressure task 10/13/2025 Patient has chronic kidney disease 10/13/2025 Patient has chronic kidney disease 10/13/2025 Weekly blood pressure task 10/19/2025 Weekly blood pressure task 10/19/2025 Patient has chronic kidney disease 10/19/2025 Patient has chronic kidney disease 10/19/2025 Weekly blood pressure task 10/20/2025 Weekly blood pressure task 10/20/2025 Patient has chronic kidney disease 10/20/2025 Patient has chronic kidney disease 10/20/2025 Assessment Noted Time PHQ-9 Depression Total Score: 3 10/20/20 25 9:09 AM EST documented as of this encounter Care Teams Gravity Manager Relationship Specialty Start Date End Date Dominique Chavis MD [address] [place] [id number] PCP - General Family Medicine 11/05/18 [facility] 01/31/19 documented as of this encounter
--- OUTSIDE RECORDS SUMMARY | 2025-10-20 10:50 | XMS_ITS | Encounter Summary ---
Author Organization [employer] Address [address] [facility] 7t [place] [address] Care Team Providers Care Clinical Courier Name Role Phone Dominique Chavis MD Primary Care Provider [phone] Encounter Details Date Type Department Care Team (Latest Contact Info) Description 10/19/2025 Travel Social History Tobacco Use Types Packs/Day Years Used Date Smoking Tobacco: Never Passive Smoke Exposure: Never Smokeless Tobacco: Never Depression Answer Date Recorded Patient Health Questionnaire-9 Score 3 10/20/2025 Patient Health Questionnaire-9 Score 3 10/20/2025 Last PHQ-9: Questionnaire Data Not on file 1 12/21/2024 Housing Stability Answer Date Recorded What is your housing situation today? I have [facility] 02/13/[address] you [...] Description 11/16/2025 9:15 AM EST Office Visit [facility] MED & PEDS [address] [place] [address] Brad Hall MD [address] [place] [address] 01/19/2026 9:00 AM EDT Office Visit [facility] MED & PEDS [address] [place] [address] Dominique Chavis MD [address] [place] [address] documented as of this encounter Goals Goal [...] chronic kidney disease No Liborio, Rola, OD Weekly blood pressure [...] Care Plan Weekly blood pressure task No Liam, Juana Weekly blood pressure task Care Plan Weekly blood pressure task No Liam, [place] Patient has chronic kidney disease Care Plan Patient has chronic kidney disease No Liam [place] Patient has chronic kidney disease Care Plan Patient has chronic kidney disease No Liam [place] Weekly blood pressure task Care Plan Weekly blood pressure task No Nalini Oneil [place] Weekly blood pressure task Care Plan Weekly blood pressure task No Nalini Oneil [place] Patient has chronic kidney disease Care Plan Patient has chronic kidney disease No Nalini Oneil [place] Patient has chronic kidney disease Care Plan Patient has chronic kidney disease No Nalini Oneil [place] documented as of this encounter Visit Diagnoses Not on filedocumented in this encounter Additional Health Concerns Active [...] 10/19/2025 Patient has chronic kidney disease 10/19/2025 Assessment Noted Time PHQ-9 Depression Total Score: 14 025 8:42 AM EDT documented as of this encounter Care Teams Clinical Courier Relationship Specialty Start Date End Date Dominique Chavis MD [address] [place] [phone] PCP - General Family Medicine 11/05/18 [facility] 01/31/19 documented as of this encounter
--- OUTSIDE RECORDS SUMMARY | 2025-10-20 10:50 | XMS_ITS | Encounter Summary ---
Author Organization [employer] Address [address] [facility] 7t [place] [address] Care Team Providers Care Inspection Supervisor Name Role Phone Dominique Chavis MD Primary Care Provider [phone] Reason for Visit * Reason Onset Date Comments Durable Medical Equipment 08/08/2023 Encounter Details Date Type Department Care Team (Late st Contact Info) Description 08/08/2023 Telephone [facility] CHC MED & PEDS [address] [place] [address] Dominique Chavis MD [address] [place], [place] [phone] Durable Medical Equipment Social History Tobacco Use [...] - 08/08/2023 3:46 PM EDT Tc from [facility] requesting a new script for a CPAP machine. documented in this encounter Plan of Treatment Upcoming Encounters Date Type Department Care Team (Late st Contact Info) Description 11/16/2025 9:15 AM EST Office Visit [facility] CHC MED & PEDS [address] [place], [place] [phone] Brad Hall MD [address] [place] [address] 01/19/2026 9:00 AM EDT Office Visit [facility] CHC MED & PEDS [address] [place], [place] [phone] Dominique Chavis MD [address] [place] [address] documented as of this encounter Visit Diagnoses Not on filedocumented in this encounter Care Teams Inspection Supervisor Relationship Specialty Start Date End Date Dominique Chavis MD [address] [place], [place] [phone] PCP - General Family Medicine 11/05/18 [facility] 01/31/19 documented as of this encounter
--- OUTSIDE RECORDS SUMMARY | 2025-10-20 10:50 | XMS_ITS | Encounter Summary ---
Author Organization [employer] Address [address] [facility] 7t [place] [address] Care Team Providers Care Blasting Coal Miner Name Role Phone Dominique Chavis MD Primary Care Provider [phone] Reason for Visit * Reason Onset Date Comments Chart Prep 10/19/2025 Encounter Details Date Type Department Care Team ([facility] st Contact Info) Description 10/19/2025 Telephone C CHC MED & PEDS [address] [place], [place] [phone] Dominique Chavis MD [address] [place], [place] [phone] Chart Prep Social History Tobacco Use Types Packs/Day Years [...] encounter Miscellaneous Notes * Telephone Encounter - Nalini Oneil MA - 10/19/2025 1:38 PM EST Chart Prep Labs: done Images: done Referrals: complete Vaccines due: Covid, PCV20, Hep B, and RSV Screenings: colonoscopy Overdue care gaps: Glucose, PHQ-9, and Tobacco documented in this encounter Plan of Treatment Upcoming Encounters Date Type Department Care Team (Late st Contact Info) Description 11/16/2025 9:15 AM EST Office Visit [facility] MED & PEDS [address] [place] [address] Brad Hall MD [address] [place] [phone] 01/19/2026 9:00 AM EDT Office Visit [facility] MED & PEDS [address] [place] [address] Dominique Chavis MD [address] [place] [address] documented as of this encounter Goals Goal [...] Care Plan Weekly blood pressure task No LiamMike duranilet Weekly blood pressure task Care Plan Weekly blood pressure task No Liam [place] Patient has chronic kidney [...] documented as of this encounter Care Teams Blasting Coal Miner Relationship Specialty Start Date End Date Dominique Chavis MD [address] [place] [phone] PCP - General Family Medicine 11/05/18 [facility] 01/31/19 documented as of this encounter
--- OUTSIDE RECORDS SUMMARY | 2025-10-20 10:50 | XMS_ITS | Encounter Summary ---
Author Organization [employer] Address [address] [facility] [address] [address] Care Team Providers Care Crusher And Blender Operator Name Role Phone Dominique Chavis MD Primary Care Provider [phone] Encounter Details Date Type Department Care Team (Late st Contact Info) Description 04/25/2023 Abstract [facility] MEDICINE [address] [place] [address] Dominique Chavis MD [address] [place], [place] [phone] Social History Tobacco Use Types Packs/Day Years [...] Description 11/16/2025 9:15 AM EST Office Visit [facility] CHC MED & PEDS [address] [place], [place] [phone] Brad Hall MD [address] [place], [place] [phone] 01/19/2026 9:00 AM EDT Office Visit [facility] MED & PEDS [address] [place], [place] [phone] Dominique Chavis MD [address] [place] [address] documented as of this encounter Visit Diagnoses Not on filedocumented in this encounter Care Teams Crusher And Blender Operator Relationship Specialty Start Date End Date Dominique Chavis MD [address] [place] [address] PCP - General Family Medicine [facility] documented as of this encounter
--- OUTSIDE RECORDS SUMMARY | 2025-10-20 10:50 | XMS_ITS | Encounter Summary ---
Author Organization [employer] Address [address] [facility] 7t [place] [address] Care Team Providers Care Marketing Program Coordinator Name Role Phone Dominique Chavis MD Primary Care Provider [phone] Reason for Visit * Reason Onset Date Comments pre medication 03/10/2024 Encounter Details Date Type Department Care Team ([facility] st Contact Info) Description 03/10/2024 Telephone C [facility] ADULT DENTAL [address] [place] [address] Renetta Rincon, NATHALY pre medication Social History [...] had extractions done he had pre med DR documented in this encounter Plan of Treatment Upcoming Encounters Date Type Department Care Team (Late st Contact Info) Description 11/16/2025 9:15 AM EST Office Visit [facility] MED & PEDS [address] [place] [address] Brad Hall MD [address] [place] [address] 01/19/2026 9:00 AM EDT Office Visit [facility] MED & PED[facility] [address] [place] [address] Dominique Chavis MD [address] [place] [address] documented as of this encounter Visit Diagnoses Not on filedocumented in this encounter Additional Health Concerns Assessment Noted Time PHQ-9 Depression Total Score: 6 02/21/20 24 2:08 PM EDT documented as of this encounter Care Teams Marketing Program Coordinator Relationship Specialty Start Date End Date Dominique Chavis MD [address] [place] [id number] PCP - General Family Medicine 11/05/18 [facility] 01/31/19 documented as of this encounter
--- OUTSIDE RECORDS SUMMARY | 2025-10-20 10:50 | XMS_ITS | Encounter Summary ---
Author Organization [employer] Address [address] [facility] 7 [place] [address] Care Team Providers Care Analytics Specialist Name Role Phone Dominique Chavis MD Primary Care Provider [phone] Reason for Visit * Reason Comments Med Refill Encounter Details Date Type Department Care Team (Late Contact Info) Description 08/27/2023 Refill [facility] MEDICINE [address] [place] [phone] Brad Hall MD [address] [place] [address] Opioid dependence, uncomplicated (CMS/[facility]) Social History Tobacco Use Types Packs/Day Years [...] Description 11/16/2025 9:15 AM EST Office Visit [facility] CHC MED & PEDS [address] [place] [address] Brad Hall MD [address] [place] [address] 01/19/2026 9:00 AM EDT Office Visit [facility] CHC MED & PEDS [address] [place] [address] Dominique Chavis MD [address] [place], [place] [phone] documented as of this encounter Visit Diagnoses Diagnosis Opioid dependence, uncomplicated (CMS/HCC) (HCC) documented in this encounter Care Teams Analytics Specialist Relationship Specialty Start Date End Date Dominique Chavis MD [address] [place] [address] PCP - General Family Medicine 11/05/18 [facility] 01/31/19 documented as of this encounter
--- OUTSIDE RECORDS SUMMARY | 2025-10-20 10:50 | XMS_ITS | Encounter Summary ---
Author Organization [employer] Address [address] [facility] [address] [place] [address] Care Team Providers Care Commercial Lending Vice President Name Role Phone Dominique Chavis MD Primary Care Provider Encounter Details Date Type Department Care Team (Late st Contact Info) Description 12/13/2022 Abstract [facility] MED[facility]INE [address] [place] [address] Dominique Chavis MD [address] [place] [address] Social History Tobacco Use Types Packs/Day Years [...] Description 11/16/2025 9:15 AM EST Office Visit [facility] [address] [place] [address] Brad Hall MD [address] [place] [address] 01/19/2026 9:00 AM EDT Office Visit [facility] [address] [place] [address] Dominique Chavis MD [address] [place] [address] documented as of this encounter Visit Diagnoses Not on filedocumented in this encounter Care Teams Commercial Lending Vice President Relationship Specialty Start Date End Date Dominique Chavis MD [address] [place] [phone] PCP - General Family Medicine [facility] documented as of this encounter
--- OUTSIDE RECORDS SUMMARY | 2025-10-20 10:50 | XMS_ITS | Encounter Summary ---
Author Organization [employer] Address [address] [facility] 7t [place] [address] Care Team Providers Care Dye Room Helper Name Role Phone Dominique Chavis MD Primary Care Provider [phone] Reason for Visit * Reason Comments Med Refill Encounter Details Date Type Department Care Team ([facility] st Contact Info) Description 10/18/2025 Refill [facility] MEDICINE [address] [place], [place] [phone] Dominique Chavis MD [address] [place], [place] [phone] Essential hypertension Social History Tobacco Use Types Packs/Day Years [...] Description 11/16/2025 9:15 AM EST Office Visit [facility] [address] [place] [address] Brad Hall MD [address] [place] [phone] 01/19/2026 9:00 AM EDT Office Visit [facility] [address] [place] [address] Dominique Chavis MD [address] [place] [address] documented as of this encounter Goals Goal [...] Care Plan Weekly blood pressure task No Liborio Rola, OD Patient has diabetic eye disease [...] Plan Patient has chronic kidney disease No Maddy, Nancy Patient has chronic kidney disease Care Plan Patient has chronic kidney disease No Maddy, Nancy Weekly blood pressure task Care Plan Weekly blood pressure task No Liam, [place] Weekly blood pressure task Care Plan Weekly blood pressure task No Liam, [place] Patient has chronic kidney disease Care Plan Patient has chronic kidney disease No Liam, [place] Patient has chronic kidney disease Care Plan Patient has chronic kidney disease No Liam, [place] documented as of this encounter Visit Diagnoses Diagnosis Essential hypertension Unspecified essential hypertension documented in this encounter Additional Health Concerns [...] 10/13/2025 Patient has chronic kidney disease 10/13/2025 Assessment Noted Time PHQ-9 Depression Total Score: 14 025 8:42 AM EDT documented as of this encounter Care Teams Dye Room Helper Relationship Specialty Start Date End Date Dominique Chavis MD [address] [place], [place] [address] [address] PCP - General Family Medicine 11/05/18 [facility] 01/31/19 documented as of this encounter
--- OUTSIDE RECORDS SUMMARY | 2025-10-20 10:50 | XMS_ITS | Clinical Summary ---
Author Organization [employer] Address [address] [facility] 7t [place] [address] Care Team Providers Care In Shop Service Technician Name Role Phone Dominique Chavis MD Primary Care Provider [phone] Allergies Active Allergy Reactions Criticality Noted Date Comments Aspirin 10/06/2022 Penicillins Hives 11/23/2010 Other reaction(s): unspecified Medications * This document contains information received from the source organization and may not represent a complete record from that organization. haloperidol (Haldol) 5 MG tablet take 1/2 tablet by oral route every HS Active naloxone (Narcan) 4 mg/0.1 mL nasal spray Administer 0.1 mL into affected nostril(s). 02/15/20 19 Active QUEtiapine (SEROquel) 200 MG tablet take 1 tablet by oral route every day in evening 02/22/20 19 Active buPROPion SR (Wellbutrin SR) 150 MG 12 hr tablet Take 2 tablets by mouth at bed time. 04/01/20 19 Active zolpidem (Ambien) 10 MG tablet take 1 Tablet by Oral route prioe sleep study test 03/18/20 19 Active SUMAtriptan (Imitrex) 50 MG tablet Take 1 tablet by mouth once with fluids as early as possible after onset of a migraine attack ,may repeat after 2 hours if headache returns 9 tablet 1 04/25/20 23 Active LORazepam (Ativan) 1 MG tablet Take one (1) tablet by mouth every afternoon at 2p 08/31/20 23 Active tamsulosin (Flomax) 0.4 MG 24 hr capsule Take 0.8 mg by mouth at bedtime. 08/24/20 23 Active Blood Glucose Monitoring Suppl (Ubicom Lite) w/Device kit USE DIRECTED 2 (two) times a day 1 kit 01/17/20 24 Active clotrimazole-bet amethasone (Lotrisone) cream APPLY TO THE AFFECTED AREA TOPICALLY two (2) times a day 45 g 1 12/23/19 25 Active fluticasone furoate (Arnuity Ellipta) 50 MCG/ACT inhaler Inhale 1 puff Once per day. Rinse mouth with water after use to reduce aftertaste and incidence of candidiasis. Do not swallow. 1 each 5 1:05 PM EST 01/07/20 25 2025 Active Farxiga 5 MG Take 1 tablet (5 mg) by mouth in the morning. 30 tablet 11 5 1:05 PM EST 01/17/20 25 Active melatonin 3 MG tablet take one (1) tablet by mouth at bedtime 11/21/19 25 Active QUEtiapine (SEROquel) 50 MG tablet 01/11/20 25 Active Aspirin Low Dose 81 MG EC tabletIndication s:Essential hypertension TAKE 1 TABLET BY MOUTH ONCE DAILY 90 tablet 3 02/21/20 25 Active docusate sodium (Colace) 100 MG capsule TAKE 1 CAPSULE BY MOUTH two (2) times a day 60 capsule 11 5 12:31 PM EST 04/03/20 25 Active atorvastatin (Lipitor) 40 MG tabletIndication s:Type 2 diabetes mellitus without complication, without long-term current use of insulin (HCC) TAKE 1 TABLET BY MOUTH AT BEDTIME 30 tablet 11 05/12/20 25 Active omeprazole (PriLOSEC) [address] capsule TAKE 1 CAPSULE BY MOUTH ONCE DAILY 30 capsule 11 05/26/20 25 Active lisinopril-hydro CHLOROthiazide 20-25 MG tablet TAKE 1 TABLET BY MOUTH ONCE DAILY 30 tablet 11 06/11/20 25 Active ibuprofen 600 MG tablet TAKE 1 TABLET BY MOUTH 3 (THREE) TIMES A DAY 90 tablet 11 5 12:31 PM EST 06/11/20 25 Active cholecalciferol (Vitamin D-3) 125 MCG (5000 UT) capsuleIndicatio ns:Vitamin D deficiency TAKE 1 CAPSULE BY MOUTH ONCE DAILY 30 capsule 2 08/05/20 25 Active Diclofenac Sodium 1 % gel APPLY TO THE AFFECTED AREA TOPICALLY 3 (THREE) TIMES A DAY NEEDED FOR PAIN 100 g 5 5 3:36 PM EST 08/28/20 25 Active Global Inject Ease Lancets 28G miscIndications: Type 2 diabetes mellitus without complications (HCC) USE TO TEST FINGER STICK BLOOD SUGAR 3 (THREE) TIMES A DAY 100 each 11 09/08/20 25 Active Contour Next Test test stripIndications :Type 2 diabetes mellitus without complications (HCC) USE TO TEST FINGER STICK BLOOD SUGAR 3 (THREE) TIMES A DAY 100 strip 11 09/08/20 Active Buprenorphine HCl-Naloxone HCl (Suboxone) 8-2 MG SL filmIndications: Opioid dependence, uncomplicated (CMS/HCC) (HCC) Place 1 Film under the tongue Once per day. Do not start before September 21, 2025. 28 Film 1 5 12:31 PM EST 09/21/20 25 2025 Active Stimulant Laxative 8.6-50 MG tablet TAKE 1 TABLET BY MOUTH EVERY MORNING 30 tablet 11 5 12:34 PM EST 09/22/20 Active carvedilol (Coreg) 3.125 MG tabletIndication s:Essential hypertension TAKE 1 TABLET BY MOUTH two (2) times a day. TAKE WITH FOOD 60 tablet 2 10/19/20 25 Active Tirzepatide (Mounjaro) 7.5 MG/0.5ML solution auto-injectorInd ications:Type 2 diabetes mellitus without complication, without long-term current use of insulin (HCC) Inject 7.5 mg under the skin 1 (one) time per week. 2 mL 3 10/20/20 25 Active Diclofenac Sodium (Voltaren) 1 % gel Apply topically every 8 (eight) hours. 12/05/19 22 2024 Discontinued(T herapy completed) albuterol (ProAir HFA) 108 (90 Base) MCG/ACT inhaler every 4 (four) hours. 02/03/20 20 2024 Discontinued(T herapy completed) acetaminophen (Tylenol) 500 MG tablet Take 1 tablet (500 mg) by mouth every 6 (six) hours if needed for mild pain for up to 20 doses. 20 tablet 05/19/20 24 2024 Discontinued(T herapy completed) chlorhexidine (Peridex) 0.12 % solution Swish 15 mL morning and night for 1 minute. Spit, do not swallow. Do not eat or drink for 30 minutes following use. 473 mL 05/19/20 24 2024 Discontinued(T herapy completed) senna-docusate (Senna-Plus) 8.6-50 MG tablet TAKE 1 TABLET BY MOUTH EVERY MORNING 30 tablet 11 09/23/20 24 2024 Discontinued clonazePAM (KlonoPIN) 1 MG tabletIndication s:Type 2 diabetes mellitus without complication, without long-term current use of insulin (HCC) Take 1 tab 1 hour before dental procedures 5 tablet 10/23/20 24 2024 Discontinued(T herapy completed) glipiZIDE (Glucotrol) 10 MG tablet Take 1 tablet (10 mg) by mouth before breakfast and before evening meal. 60 tablet 11 5 12:31 PM EST 01/27/20 25 2024 Discontinued(S adam effects) Tirzepatide (Mounjaro) 5 MG/0.5ML solution auto-injectorInd ications:Type 2 diabetes mellitus with diabetic neuropathic arthropathy, without long-term current use of insulin (HCC) Inject 5 mg under the skin 1 (one) time per week. 2 mL 3 5 10:30 AM EST 06/25/20 25 2024 Discontinued carvedilol (Coreg) 3.125 MG tabletIndication s:Essential hypertension TAKE 1 TABLET BY MOUTH two (2) times a day. TAKE WITH FOOD 60 tablet 2 07/16/20 25 2024 Discontinued(R eorder (will not trigger notification to Pharmacy)) Mounjaro 5 MG/0.5ML solution auto-injectorInd ications:Type 2 diabetes mellitus with diabetic neuropathic arthropathy, without long-term current use of insulin (HCC) Inject 5 mg under the skin 1 (one) time per week. 2 mL 3 5 3:36 PM EST 10/13/20 25 2024 Discontinued(T herapy completed) Active Problems Problem Noted Date Diagnosed Date [...] Encounters Date Type Department Care Team Description 10/20/2025 9:00 AM EST Office Visit [facility] [address] [place] [address] Dominique Chavis MD Type 2 diabetes mellitus without complication, without long-term current use of insulin (HCC) (Primary Dx); Essential hypertension; Class 3 severe obesity with serious comorbidity and body mass index (BMI) of 45.0 to 49.9 in adult, unspecified obesity type (HCC); Encounter for long-term use of opiate analgesic 10/20/2025 Travel 10/19/2025 Telephone [facility] [address] [place] [address] Dominique Chavis MD Chart Prep 10/19/2025 Travel 10/18/[address] [facility] MEDICINE [address] [place] [address] Dominique Chavis MD Essential hypertension 10/13/2025 Patient Outreach [facility] [address] [place] [address] Dominique Chavis MD Pre-visit Planning (SDOH completed) 10/12/2025 Refill [facility] [address] [place] [address] Dominique Chavis MD Type 2 diabetes mellitus with diabetic neuropathic arthropathy, without long-term current use of insulin (HCC) 10/07/2025 Patient Outreach [facility] MED[facility] [address] [place] [address] Dominique Chavis MD 09/22/2025 Refill [facility] [address] [place] [address] Dominique Chavis MD 09/21/2025 9:00 AM EST Office Visit [facility] [address] [place], [place] [phone] Brad Hall MD Opioid type dependence, continuous (CMS/HCC) (HCC) (Primary Dx) 09/21/2025 Travel 09/15/2025 Telephone [facility] [address] [place] [address] Dominique Chavis MD Call Back Request 09/14/[address] [facility] MED[facility]INE [address] [place] [address] Preeti Johnson RN Opioid dependence, uncomplicated (CMS/HCC) (HCC) 09/09/2025 10:00 AM EST Office Visit 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 MED[facility]INE [address] [place] [address] Dominique Chavis MD 08/18/2025 11:30 AM EDT Office Visit [facility] [address] [place] [address] Dominique Chavis MD Opioid dependence, uncomplicated (CMS/HCC) (HCC) (Primary Dx); Type 2 diabetes mellitus without complication, without long-term current use of insulin (HCC); Encounter for immunization; Class 3 severe obesity with serious comorbidity and body mass index (BMI) of 45.0 to 49.9 in adult, unspecified obesity type (HCC) 08/18/2025 Travel 08/17/2025 Telephone [facility] [address] [place] [address] Dominique Chavis MD Chart Prep 08/05/[address] [facility] MED[facility]INE [address] [place] [address] Dominique Chavis MD Vitamin D deficiency 07/27/2025 9:00 AM EDT Office Visit [facility] PEDS [address] [place] [address] Brad Hall MD Uncomplicated opioid dependence (CMS/HCC) (Primary Dx) 07/27/2025 Travel from Last 3 Months Immunizations Immunization Administration Dates Next Due Hep B, adult 12/09/2019,08/07/2019 Influenza injectable quadriv alent IIV4 with preservative 09/10/2018,09/11/2017,08/31/2015 Influenza injectable quadriv alent preservative free 08/29/2023,08/31/2022,11/15/2020,2018,09/05/2016 Influenza, seasonal, injecta ble, preservative free 08/18/2025,10/23/2024 Moderna Covid-19 Vaccine 12+ 12/01/2021,01/29/20 21,12/31/2020 TD [...] 20 10/20/2025 8:57 AM EST Oxygen Saturation 97% 02/05/2025 8:39 AM EDT Inhaled Oxygen Concentration - - Weight 123 kg (272 lb) 10/20/2025 8:57 AM EST Height 167.6 cm (5' 6 ) 05/07/2025 8:53 AM EDT Body Mass Index 43.9 05/07/2025 8:53 AM EDT Plan of Treatment Upcoming Encounters Date Type Department Care Team (Late st Contact Info) Description 11/16/2025 9:15 AM EST Office Visit [facility] [address] [place] [address] Brad Hall MD [address] [place] [address] 01/19/2026 9:00 AM EDT Office Visit [facility] [address] [place] [address] Dominique Chavis MD [address] [place] [address] Health Maintenance Due Date Last Done Comments CT Colonography 1962 Colonoscopy 1962 Colorectal Cancer Screening 1962 Dental Oral Exam 1962 Dental Prophylaxis 1962 Dental X-Ray: Bitewings 1962 FIT DNA/Cologuard 1962 FIT 1962 FOBT 1962 Sigmoidoscopy 1962 Pneumococcal Vaccine: 50+ Years (1 of 2 - PCV) 1981 RSV Patients and Patients Aged 60 years or older (1 - Risk 50-74 years 1-dose series) 02/02/2012 Hepatitis B Vaccines (3 of 3 - 19+ 3-dose series) 02/06/2020 12/09/2019, 08/07/2019 COVID-19 Vaccine (2024- season) 2025 12/01/2021, 01/28/2021, 12/31/2020 Alcohol/Substance Use Screening 02/05/2026 02/05/2025 SDOH Screening 02/05/2026 02/05/2025 Diabetes: Urine Protein Screening 02/09/2026 02/09/2025, 04/13/2022, 04/13/2022, Additional history exists Lipid Panel 02/09/2026 02/09/2025, 03/2023, 04/11/2022, Additional history exists Diabetes: Hemoglobin A1C 02/16/2026 025, 05/07/2025, 02/21/2024, Additional history exists Diabetes: Foot Exam 06/25/2026 06/25/2025, 06/25/2025, 06/25/2025, Additional history exists Disability Screening 06/25/2026 06/25/2025 Eye Exam 09/09/2026 09/09/2025, 0 03/2025, 09/09/2025, Additional history exists Tobacco Screening 09/25/2026 09/25/2025 Depression Screening 10/20/2026 10/20/2025, 10/20/20 25 Dental X-Ray: Full Mouth 05/20/2027 05/19/2024, 03/06 DTaP/Tdap/Td Vaccines (3 - Td or Tdap) 09/25/2032 09/25/2022, 10/27/2016 Zoster Vaccines Completed 11/30/2020, 09/28/2020 HIV Screening Completed 03/09/2023, 12/19/2021 Hepatitis C Screening Completed 03/09/2023 , 12/19/2021, 10/08/2020 Influenza Vaccine Completed 08/18/2025, , 08/29/2023, Additional history exists HIB Vaccines Aged Out [...] patient's age to complete this topic Meningococcal B Vaccine Aged Out No l onger eligible based on patient's age to complete this topic Meningococcal Vaccine Aged Out No jaguar juan eligible based on patient's age to complete this topic RSV under 20 months Aged Out No longe r eligible based on patient's age to complete this topic Rotavirus Vaccines Aged Out No longer eligible based on patient's age to complete this topic Goals Goal Patient Goal Type Associated Problems [...] Care Plan Weekly blood pressure task No LiborioNicholas proctorn, OD Weekly blood pressure task Care Plan [...] has chronic kidney disease No Liam, [place] Weekly blood pressure task [...] chronic kidney disease No Dominique Chavis MD Procedures Procedure Name Priority Date/Time Associated Diagnosis Comments FUNDUS PHOTOS - OU - BOTH EYES Routine 09/09/2025 10:00 AM EST 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 associated with type 2 diabetes mellitus ([facility]) POCT GLYCATED HEMOGLOBIN, TOTAL Routine 08/18/2025 11:26 AM EDT Type 2 diabetes mellitus without complication, without long-term current use of insulin ([facility]) POCT GLUCOSE Routine 08/18/2025 11:26 AM EDT Type 2 diabetes mellitus without complication, without long-term current use of insulin ([facility]) ALBUMIN, RANDOM URINE W/CREATININE Routine 02/09/2025 8:05 AM EDT Type 2 diabetes mellitus without complication, without long-term current use of insulin ([facility]) LIPID PANEL, STANDARD Routine 02/09/2025 7:29 AM EDT Type 2 diabetes mellitus without complication, without long-term current use of insulin (CMS/HCC) PANORAMIC RADIOGRAPHIC IMAGE Routine 05/19/2024 1:00 PM EDT HEPATITIS C AB W/REFL TO HCV RNA, QN, PCR Routine 03/09/2023 11:26 AM EDT Opioid dependence, uncomplicated (CMS/HCC) HIV 1/2 ANTIGEN/ANTIBODY, FOURTH GENERATION W/RFL Routine 03/09/2023 11:26 AM EDT Opioid dependence, uncomplicated (CMS/HCC) Contact with and (suspected) exposure to other viral communicable diseases from Last 3 Months or Most Recently Relevant to Health Maintenance Results * Fundus Photos - OU - Both Eyes (09/09/2025 10:00 AM EST) Narrative oRla Capone, OD - 09/25/2025 11:08 AM EST Erroneous order Result [facility] Rola Capone OD OPHTH PHOTOGRAPHY Final Resul t * (ABNORMAL) POCT Hgb A1c (08/18/2025 11:26 AM EDT) Hemoglobin A1C 6.9(A) 4.0 - 5.7 % QC Media Lot # [id number] Lot# Expiration Date [id number] Blood 08/18/2025 11:2 6 AM EDT Dominique Chavis MD POINT OF CARE TEST ENTER/EDIT ORDERABLES Final Result * POCT Glucose (08/18/2025 11:26 AM EDT) Glucose Blood, POC 91 60 - 200 mg/dL QC Media Lot # [id number] Lot# Expiration Date 2,826 Blood Capillary blood specimen / Unknown 08/18/2025 11:26 AM EDT us Dominique Chavis MD POINT OF CARE TEST ENTER/EDIT ORDERABLES Final Result * Albumin, Random Urine W/Creatinine (02/09/2025 8:05 AM EDT) Creatinine, Urine 70.89 mg/dL [facility] Microalbumin Urine 9.0 mg/L [facility] Microalbum Creatinine Ratio Ur 12.6 <30 ug/mg cr [facility] Comment:Albumin/Creatinine R atio Reference Ranges: Normal: < 30 ug/mg creatinine Microalbuminuria: 30 - 300 ug/mg creatinineClinical Albuminuria: > 300 ug/mg creatinine Urine (Urine, Random) 02/09/2025 8:05 AM EDT 02/09/2025 10:01 AM EDT us Dominique Chavis MD LAB URINE ORDERABLES Final Re sult [facility] [address] [place] [phone] * (ABNORMAL) Lipid Panel, Standard (02/09/2025 7:29 AM EDT) Triglycerides 237(H) <150 mg/dL [facility] Comment:Desirable Triglyceri de: less than 150 mg/dLBorderline High Triglyceride 150-199 mg/dLHigh Triglyceride: 200-499 mg/dLVery High Triglyceride: greater than or equal to 5OO mg/dL Cholesterol 179 <200 mg/dL [facility] Comment:Desirable Cholestero l: less than 200 mg/dLBorderline High Cholesterol: 200-239 mg/dLHigh Cholesterol: greater than 239 mg/dL LDL Cholesterol Calculated 99 <100 mg/dL [facility] Comment:Desirable LDL: less than 100 mg/dLNear Optimal/Above Optimal LDL: 110- 129 mg/dLBorderline High LDL: 130-159 mg/dLHigh LDL: 160-189 mg/dLVery High LDL: greater than or equal to 190 mg/dL HDL Cholesterol 33(L) >40 mg/dL [facility] Comment:Desirable HDL: great er than 40 mg/dL Note: This HDL assay may give artificially low results in patients with liver disease. Blood Venous blood specimen / Unknown 02/09/2025 7:29 AM EDT 02/09/2025 10:12 AM EDT Dominique Chavis MD LAB BLOOD ORDERABLES Final Re sult Performing Organization Address City/[facility]/ZIP Co de Phone Number [facility] [address] [place] [address] [phone] * Hepatitis C Antibody with Reflex to HCV, RNA, Quantitative, Real-Time PCR (03/09/2023 11:26 AM EDT) Hepatitis C Antibody NON-REACT RANDAL NON-REACT RANDAL [facility] [place] [address] Index 0.08 <1.00 [facility] [place] [address] Comment: HCV antibody was non-reactive. There is no laboratory evidence of HCV infection. In most cases, no further action is required. However, if recent HCV exposure is suspected, a test for HCV RNA (test code 22936) is suggested. For additional information please refer to http://education.[employer]/faq/SOO94a1 (This link is being provided for informational/ educational purposes only.) Blood Venous blood specimen / Unknown 03/09/2023 11:26 AM EDT 03/09/2023 11:26 AM EDT Narrative [facility] - 03/11/2023 8:16 PM EDT PATIENT UNABLE TO VOID; ADVISED TO RETURN FOR COLLECTION. Brad Hall MD LAB BLOOD ORDERABLES Final Resul t Performing Organization Address City/[facility]/ZIP Co de Phone Number [facility] [address], [place] [address] [facility] [place] [address] [place] [phone] * HIV-1/2 Antigen and Antibodies, Fourth Generation, with Reflexes (03/09/2023 11:26 AM EDT) HIV Antigen/Antibody, 4th Generation NON-REAC TIVE NON-REAC TIVE [facility] [place] [address] Comment: HIV-1 antigen and HIV-1/HIV-2 antibodies were not detected. There is no laboratory evidence of HIV infection. PLEASE NOTE: This information has been disclosed to you from records whose confidentiality may be protected by state law. If your state requires such protection, then the state law prohibits you from making any further disclosure of the information without the specific written consent of the person to whom it pertains, or as otherwise permitted by law. A general authorization for the release of medical or other information is NOT sufficient for this purpose. For additional information please refer to http://education.[employer]/faq/PQK714 (This link is being provided for informational/ [...] BLOOD ORDERABLES Final Resul t [facility] [address], [place] [address] [facility] [address] [place] [phone] from Last 3 Months or Most Recently Relevant to Health Maintenance Additional Health Concerns Active Problems Noted Date [...] 10/20/2025 Patient has chronic kidney disease 10/20/[address] [place] [place] [address] [place] [phone] [facility] STANDARD DENTAL-[facility] MEDICAID STAND ADULT Care Teams In Shop Service Technician Relationship Specialty Start Date End Date Dominique Chavis MD [address] [place], [place] [address] [address] PCP - General Family Medicine [facility]
--- OUTSIDE RECORDS SUMMARY | 2025-10-20 10:50 | XMS_ITS | Encounter Summary ---
Author Organization [employer] Address [address] [facility] 7 [place] [address] Care Team Providers Care Advertising Production Manager Name Role Phone Dominique Chavis MD Primary Care Provider [phone] Reason for Visit * Reason Onset Date Comments FYI 11/02/2023 Encounter Details Date Type Department Care Team ([facility] st Contact Info) Description 11/02/2023 Telephone [facility] [address] [place], [place] [phone] Dominique Chavis MD [address] [place] [address] FYI Social History Tobacco Use Types Packs/Day [...] sign. If any questions contact Mercedes at [phone]. documented in this encounter Plan of Treatment Upcoming Encounters Date Type Department Care Team (Late st Contact Info) Description 11/16/2025 9:15 AM EST Office Visit [facility] MED & PEDS [address] [place] [address] Brad Hall MD [address] [place] [address] 01/19/2026 9:00 AM EDT Office Visit [facility] MED & PEDS [address] [place] [address] Dominique Chavis MD 505 [place] [address] documented as of this encounter Visit Diagnoses Not on filedocumented in this encounter Care Teams Advertising Production Manager Relationship Specialty Start Date End Date Dominique Chavis MD [address] [place] [address] PCP - General Family Medicine 11/05/18 [facility] 01/31/19 documented as of this encounter
--- OUTSIDE RECORDS SUMMARY | 2025-10-20 10:50 | XMS_ITS | Encounter Summary ---
Author Organization [employer] Address 75 [facility] 7t [place] [address] Care Team Providers Care Hog Dropper Name Role Phone Dominique Chavis MD Primary Care Provider [phone] Reason for Visit * Reason Onset Date Comments Med Change Request 02/26/2024 Encounter Details Date Type Department Care Team ([facility] st Contact Info) Description 02/26/2024 Telephone [facility] MED & PEDS [address] [place] [address] Dominique Chavis MD 505 [place] [address] Med Change Request Social History Tobacco Use [...] inhaler is also not covered by insurance, [facility] insurance will cover for pulmicort inhaler * Telephone Encounter - Mamta Walsh - 02/26/2024 11:35 AM EDT Tc from pt requesting an alternative for Fluticasone Propionate, Inhal, (Flovent Diskus) 250 MCG/ACT aerosol powder. States insurance does no cover. Please contact pt at [phone] documented in this encounter Plan of Treatment Upcoming Encounters Date Type Department Care Team ([facility] st Contact Info) Description 11/16/2025 9:15 AM EST Office Visit [facility] MED & PEDS [address] [place] [address] Brad Hall MD 230 [place] [address] 01/19/2026 9:00 AM EDT Office Visit [facility] MED & PEDS [address] [place] [address] Dominique Chavis MD [address] [place] [address] documented as of this encounter Visit Diagnoses Not on filedocumented in this encounter Additional Health Concerns Assessment Noted Time PHQ-9 Depression Total Score: 6 02/21/20 24 2:08 PM EDT documented as of this encounter Care Teams Hog Dropper Relationship Specialty Start Date End Date Dominique Chavis MD 505 [place] [address] PCP - General Family Medicine 11/05/18 [facility] 01/31/19 documented as of this encounter
--- OUTSIDE RECORDS SUMMARY | 2025-10-20 10:50 | XMS_ITS | Encounter Summary ---
Author Organization [employer] Address 75 [facility] 7[address] [place] [address] Care Team Providers Care Stripper Printed Circuit Boards Name Role Phone Dominique Chavis MD Primary Care Provider [phone] Reason for Visit * Reason Comments Med Refill Encounter Details Date Type Department Care Team ([facility] Contact Info) Description 05/24/2023 Refill [facility] MED & PEDS [address] [place] [address] Dominique Chavis MD 505 [place] [address] Chronic idiopathic constipation Social History Tobacco Use [...] Department Care Team (Late Contact Info) Description 11/16/2025 9:15 AM EST Office Visit [facility] MED & PEDS [address] [place] [address] Brad Hall MD 230 [place] [address] 01/19/2026 9:00 AM EDT Office Visit [facility] MED & PEDS [address] [place] [address] Dominique Chavis MD [address] [place] [address] documented as of this encounter Visit Diagnoses Diagnosis Chronic idiopathic constipation Unspecified constipation documented in this encounter Care Teams Stripper Printed Circuit Boards Relationship Specialty Start Date End Date Dominique Chavis MD [address] [place] [id number] PCP - General Family Medicine 11/05/18 [facility] 01/31/19 documented as of this encounter
--- OUTSIDE RECORDS SUMMARY | 2025-10-20 10:50 | XMS_ITS | Encounter Summary ---
Author Organization [employer] Address 75 [facility] 7t [place] [address] Care Team Providers Care Deep Submergence Vehicle Operator Name Role Phone Dominique Chavis MD Primary Care Provider [phone] Reason for Visit * Reason Onset Date Comments FYI 09/03/2023 Encounter Details Date Type Department Care Team ([facility] st Contact Info) Description 09/03/2023 Telephone [facility] MEDICINE [address] [place] [address] Dominique Chavis MD [address] [place], [place] [phone] FYI Social History Tobacco Use Types Packs/Day [...] - 09/03/2023 4:18 PM EDT Tc from [place] with [facility] calling to inform PCP facility is renewing homecare servicesfor 60 more days, starting 09/07/2023 documented in this encounter Plan of Treatment Upcoming Encounters Date Type Department Care Team (Late st Contact Info) Description 11/16/2025 9:15 AM EST Office Visit [facility] MED & PEDS [address] [place] [address] Brad Hall MD 230 [place] [address] 01/19/2026 9:00 AM EDT Office Visit [facility] MED & PEDS [address] [place] [address] Dominique Chavis MD [address] [place] [address] documented as of this encounter Visit Diagnoses Not on filedocumented in this encounter Care Teams Deep Submergence Vehicle Operator Relationship Specialty Start Date End Date Dominique Chavis MD [address] [place] [address] PCP - General Family Medicine 11/05/18 [facility] 01/31/19 documented as of this encounter
--- OUTSIDE RECORDS SUMMARY | 2025-10-20 10:50 | XMS_ITS | Encounter Summary ---
Author Organization [employer] Address 75 [facility] 7 [place] [address] Care Team Providers Care Director Name Role Phone Dominique Chavis MD Primary Care Provider [phone] Reason for Visit * Reason Onset Date Comments Prior Authorization 01/06/2025 Change Encounter Details Date Type Department Care Team ([facility] st Contact Info) Description 01/06/2025 Telephone C [facility] [address] [place] [address] Dominique Chavis MD 505 [place], [place] [phone] Prior Authorization (Change ) Social History Tobacco [...] at this time. MD Faye Garcia LPN; [facility] Med & Peds Nurses: Pulmicort stopped due [...] Description 11/16/2025 9:15 AM EST Office Visit [facility] MED & PEDS 505 [place] [address] Brad Hall MD [address] [place] [address] 01/19/2026 9:00 AM EDT Office Visit [facility] MED & PEDS [address] [place] [address] Dominique Chavis MD 505 [place] [address] documented as of this encounter Visit Diagnoses Not on filedocumented in this encounter Additional Health Concerns Assessment Noted Time PHQ-9 Depression Total Score: 6 02/21/20 24 2:08 PM EDT documented as of this encounter Care Teams Director Relationship Specialty Start Date End Date Dominique Chavis MD 505 [place] [address] PCP - General Family Medicine 11/05/18 [facility] 01/31/19 documented as of this encounter
--- OUTSIDE RECORDS SUMMARY | 2025-10-20 10:50 | XMS_ITS | Encounter Summary ---
Author Organization [employer] Address 75 [facility] 7[address] [place] [address] Care Team Providers Care Potline Monitor Name Role Phone Dominique Chavis MD Primary Care Provider [phone] Reason for Visit * Reason Comments Med Refill Encounter Details Date Type Department Care Team ([facility] Contact Info) Description 05/17/2023 Refill [facility] MED & PEDS 505 [place] [address] Dominique Chavis MD 505 [place] [address] Chronic idiopathic constipation Social History Tobacco Use [...] Description 11/16/2025 9:15 AM EST Office Visit [facility] MED & PEDS 505 [place] [address] Brad Hall MD 230 [place] [address] 01/19/2026 9:00 AM EDT Office Visit [facility] MED & PEDS 505 [place] [address] Dominique Chavis MD 505 [place] [address] documented as of this encounter Visit Diagnoses Diagnosis Chronic idiopathic constipation Unspecified constipation documented in this encounter Care Teams Potline Monitor Relationship Specialty Start Date End Date Dominique Chavis MD [address] [place] [address] PCP - General Family Medicine 11/05/18 [facility] 01/31/19 documented as of this encounter
--- OUTSIDE RECORDS SUMMARY | 2025-10-20 10:50 | XMS_ITS | Encounter Summary ---
Author Organization [employer] Address 75 [facility] 7t [place] [address] Care Team Providers Care Fx Artist Name Role Phone Dominique Chavis MD Primary Care Provider [phone] Encounter Details Date Type Department Care Team (Latest Contact Info) Description 10/20/2025 Travel Social History Tobacco Use Types Packs/Day [...] AM EDT documented as of this encounter Functional Status * Over the [...] Assessment Author Somewhat difficult 10/20/2025 9:09 AM EST Nalini Lomas [place] documented as of this encounter Plan of Treatment Upcoming Encounters Date Type Department Care Team (Late st Contact Info) Description 11/16/2025 9:15 AM EST Office Visit [facility] MED & PEDS 505 [place] [address] Brad Hall MD 230 [place] [address] 01/19/2026 9:00 AM EDT Office Visit [facility] MED & PEDS [address] [place] [address] Dominique Chavis MD 505 [place] [address] documented as of this encounter Goals Goal [...] Plan Patient has chronic kidney disease No Rola Capone, OD Weekly blood pressure task Care Plan [...] Care Plan Weekly blood pressure task No Mike Wheelerilet Weekly blood pressure task Care Plan Weekly blood pressure task No Liam Ju[place] Patient has chronic kidney disease Care Plan Patient has chronic kidney disease No Mike [place]ilet Patient has chronic kidney disease Care Plan [...] documented as of this encounter Care Teams Fx Artist Relationship Specialty Start Date End Date Dominique Chavis MD 505 [place] [address] PCP - General Family Medicine 11/05/18 [facility] 01/31/19 documented as of this encounter
--- OUTSIDE RECORDS SUMMARY | 2025-10-20 10:50 | XMS_ITS | Encounter Summary ---
Author Organization [employer] Address 75 [facility] 7t [place] [address] Care Team Providers Care Process Safety Engineer Name Role Phone Dominique Chavis MD Primary Care Provider [phone] Reason for Visit * Reason Onset Date Comments Call Back Request 09/15/2025 Encounter Details Date Type Department Care Team ([facility] st Contact Info) Description 09/15/2025 Telephone C [facility]S [address] [place], [place] [phone] Dominique Chavis MD 505 [place] [address] Call Back Request Social History Tobacco Use Types Packs/Day [...] encounter Miscellaneous Notes * Telephone Encounter - Faina Elizabeth RN - 09/15/2025 1:21 PM EST No authorization to speak with this agency. Pt is enrolled with another [facility]NA and no mention of said facility. * Telephone Encounter - Austin Anderson - 09/15/2025 9:10 AM EST Tc from [facility] reporting that pt has been getting migraines and would like for the pt to be contacted so he can start taking the medications that he used to take for migraines. Contact pt at [phone] documented in this encounter Plan of Treatment Upcoming Encounters Date Type Department Care Team (Late st Contact Info) Description 11/16/2025 9:15 AM EST Office Visit [facility] MED & PEDS 505 [place] [address] Brad Hall MD 230 [place] [address] 01/19/2026 9:00 AM EDT Office Visit [facility] MED & PEDS 505 [place] [address] Dominique Chavis MD 505 [place] [address] documented as of this encounter Visit Diagnoses Not on filedocumented in this encounter Additional Health Concerns Assessment Noted Time PHQ-9 Depression Total Score: 14 02/05/ 025 8:42 AM EDT documented as of this encounter Care Teams Process Safety Engineer Relationship Specialty Start Date End Date Dominique Chavis MD [address] [place] [address] PCP - General Family Medicine 11/05/18 [facility] 01/31/19 documented as of this encounter
--- OUTSIDE RECORDS SUMMARY | 2025-10-20 10:50 | XMS_ITS | Encounter Summary ---
Author Organization [employer] Address [address] [facility] 7[address] [place] [address] Care Team Providers Care Sports Activities Foul Judge Name Role Phone Dominique Chavis MD Primary Care Provider [phone] Reason for Visit * Reason Comments Med Refill Encounter Details Date Type Department Care Team ([facility] Contact Info) Description 05/18/2023 Refill [facility] MED & PEDS [address] [place] [address] Dominique Chavis MD [address] [place] [address] Chronic idiopathic constipation Social History Tobacco Use [...] Description 11/16/2025 9:15 AM EST Office Visit [facility] CHC MED & PEDS [address] [place] [address] Brad Hall MD 230 [place] [address] 01/19/2026 9:00 AM EDT Office Visit [facility] MED & PEDS [address] [place] [address] Dominique Chavis MD [address] [place] [address] documented as of this encounter Visit Diagnoses Diagnosis Chronic idiopathic constipation Unspecified constipation documented in this encounter Care Teams Sports Activities Foul Judge Relationship Specialty Start Date End Date Dominique Chavis MD [address] [place] [address] PCP - General Family Medicine 11/05/18 [facility] 01/31/19 documented as of this encounter
--- OUTSIDE RECORDS SUMMARY | 2025-10-20 10:51 | XMS_ITS | Clinical Summary ---
Author Organization [address] [place] [address] Address [address] [place] [address] Phone Care Team Providers Care Skip Loader Name Role Phone Dominique Chavis MD Primary Care Provider [phone] Allergies Active Allergy Reactions Criticality Noted Date Comments Aspirin 10/06/2022 Penicillins Hives,Swelling,Rash 11/23/2010 Other reaction(s): unspecified Encounters Date Type Department Care Team Description 09/02/2025 9:00 AM EDT Office Visit Orthopedic Surgery [facility] [address] [facility] [address] [place] [phone] Roger Dumont, SHEILA Type II diabetes mellitus with peripheral circulatory disorder (CMS/HCC V24, CMS/HCC V28) (Primary Dx); Diabetic mononeuropathy simplex (CMS/HCC V24, CMS/HCC V28); Dermatophytosis of nail; Pain in toe of right foot; Pain in toe of left foot; Hammer toe of left foot; Acquired hammer toe of right foot; Metatarsalgia of both feet from Last 3 Months Social History Tobacco Use Types Packs/Day Years Used Date Smoking Tobacco: Never Assessed Sex and Gender Information Value Date Recorded Sex Assigned at Not on file Legal Sex Male 10:54 AM EDT Gender Identity Not on file Sexual Orientation Not on file Last Filed Vital Signs Vital Sign Reading Time Taken Comments Blood Pressure - - Pulse - - Temperature - - Respiratory Rate - - Oxygen Saturation - - Inhaled Oxygen Concentration - - Weight 132 kg (290 lb 3.2 oz) 06/02/2025 9:02 AM EDT Height 170.2 cm (5' 7 ) 06/02/2025 9:02 AM EDT Body Mass Index 45.45 06/02/2025 9:02 AM EDT Plan of Treatment Upcoming Encounters Date Type Department Care Team (Late st Contact Info) Description 12/03/2025 8:45 AM EST Office Visit [facility] [place] [address] [phone] Roger Dumont, DPM [address] [address] Health Maintenance Due Date Last Done Comments Colorectal Cancer Screening: Colonoscopy 1962 Naloxone Order 1962 Opioid Substance Agreement 1962 Pain Assessment 1962 Diabetes: Annual Foot Exam 02/02/1972 Diabetes: Annual Retina Eye Exam 02/02/1972 Hepatitis A Vaccines (1 of 2 - Risk 2-dose series) 1981 Pneumococcal Vaccine: 50+ Years (1 of 2 - PCV) 1981 RSV Immunization Adult Patients (1 - Risk 50-74 years 1-dose series) 02/02/2012 Hepatitis B Vaccines (3 of 3 - 19+ 3-dose series) 02/06/2020 12/09/2019, 08/07/2019 Depression Screening 11/05/2024 Diabetes: Annual Urine Albumin-Creatinine Ratio (uACR) 03/06/2025 Medicare Annual Wellness Visit 03/06/2025 Social Influencers of Health Screening 03/06/2025 COVID-19 Vaccine ( season) 2025 12/01/2021, 01/28/2021, 12/31/2020 Diabetes: Annual GFR (Glomerular Filtration Rate) 02/09/2026 02/09/2025 Hypertension/CHF/CAD Annual BMP Blood Test 02/09/2026 02/09/2025 Diabetes: Blood Sugar Control Test (HGBA1C) 02/16/2026 08/18/2025, 05/07/2025, 02/21/2024 Drug Screen 06/01/2026 06/01/2025, 04/06/2025 Cholesterol Screening (Lipid Panel) 02/09/2030 02/09/2025 DTaP,Tdap,and Td Vaccines (3 - Td or Tdap) 09/25/2032 09/25/2022, 10/27/2016 Zoster Vaccines Completed 11/30/2020, 09/28/2020 HIV Screening Completed 03/09/2023 Hepatitis C Screening Completed 03/09/2023 Influenza Vaccine Completed 08/18/2025, , 08/29/2023, Additional history exists HIB Vaccines Aged Out No longer eligi ble based on patient's age to complete this topic HPV Vaccines Aged Out No longer eligi ble based on patient's age to complete this topic IPV Vaccines Aged Out No longer eligi ble based on patient's age to complete this topic MMR Vaccines Aged Out No longer eligi ble based on patient's age to complete this topic Meningococcal ACWY Vaccine Aged Out N o longer eligible based on patient's age to complete this topic Meningococcal B Vaccine Aged Out No l onger eligible based on patient's age to complete this topic RSV Immunization Patients Under 20 months Aged Out No longer eligible based on patient's age to complete this topic Varicella Vaccines Aged Out No longer eligible based on patient's age to complete this topic Insurance MEDICARE MEDICAID - [place] Care Teams Skip Loader Relationship Specialty Start Date End Date Dominique Chavis MD [address] [place] [phone] PCP - General Internal Medicine 03/06/25
[2025-10-20 16:07] LABS: Hemoglobin A1C 122.0046 umol/L
== END 2025-10-20 09:22 | disposition home or self-care (01) ==
LOC: HO.CHCLDS 09:21
PROVIDERS: Visit Provider Pediatrics
DX: E11.9 Type 2 diabetes mellitus without complications (principal)
CPT/HCPCS: 36415; 83036